=== PATIENT | male | born 1980 | race African-American/Black ===

== ENCOUNTER 2019-09-23 17:06 | Emergency (ER) | payer OTHER, SELFPAY ==
--- NOTE | ~2019-09-23 | XR_ITS ---
EXAMINATION: XR chest 2V 09/23/2019 17:37 INDICATION: Cough for 2 weeks PROCEDURE: 2 view chest COMPARISON: 08/25/2019 FINDINGS: The lungs are clear. The cardiomediastinal silhouette is within normal limits. There are no pleural effusions. There is no pneumothorax suspected. IMPRESSION: 1: NO ACUTE CARDIOPULMONARY DISEASE. Reviewed, dictated and finalized at location A. UCTION ENGINEER
--- NOTE | 2019-09-23 17:12 | ED.URI ---
HPI - URI/Sore Throat General Chief Complaint: Upper Respiratory Infection Stated Complaint: cough/wheezing/mucus/sore throat Time Seen by Provider: 09/23/19 17:20 Source: patient and RN notes reviewed Mode of arrival: ambulatory Limitations: no limitations History of Present Illness HPI Narrative: 39-year-old male presents with concern for cough, wheezing, chest congestion. Reports symptoms started more than 2 weeks ago, when he was seen in this clinic for results symptoms. He was given a Medrol Dosepak, Claritin, Flonase. Reports some improvement with Flonase, however his cough and chest congestion never resolved. He denies fever. Reports his child was diagnosed with influenza A today MD elicited complaint: cough Related Data Home Medications Medication Instructions Recorded Confirmed Vitamin D3 08/25/19 vickey dlvayc-Ep-krnOsyvvuufy-tea tablet 08/25/19 [Apple Cider Vinegar Plus] fqvz-fmr-izq-blkbor-om 3,6,9 5 cap PO 08/25/19 [[place] 3-6-9 Fatty Acids] hydrochlorothiazide 25 mg PO DAILY 08/25/19 pnpgdzevhuvs-rpu-whni-FA-vit K tablet PO 08/25/19 [Adults Multivitamin] Allergies Allergy/AdvReac Type Severity Reaction Status Date / Time ibuprofen Allergy Unknown Hives Verified 08/25/19 15:58 Review of Systems Review of Systems: Narrative: CONSTITUTIONAL: Reports malaise. Denies chills, sweats, or fever. EYES: Denies visual changes, redness, or discharge. ENT: Reports improving rhinorrhea, congestion. Reports sore throat. Denies sinus pain, otalgia. CARDIOVASCULAR: Denies chest pain, palpitations, or edema. RESPIRATORY: Reports cough, chest congestion, wheezing. Denies dyspnea. GASTROINTESTINAL: Denies abdominal pain, nausea, vomiting, diarrhea SKIN: Denies rash or itching. MUSCULOSKELETAL: Denies myalgia. NEUROLOGIC: Denies headache. All systems reviewed & are unremarkable except as noted in HPI and below PMFSH Social History Social History Smoking status: Never smoker Gender identity (if verbalized by the patient): Male Comments At time of signature, agree with nursing past medical, surgical, social and family history. There is no relevant family history pertinent to the presenting complaint Exam Narrative: Exam Narrative: GENERAL: Well-appearing, well-nourished, and in no acute distress. HEAD: Normocephalic, atraumatic. EYES: PERRLA, conjunctivae clear, and EOMI. ENT: Nares clear, turbinates erythematous, clear discharge. Mucous membranes moist. TM pearly gibbs with dull light reflex bilaterally; no tragal tenderness. Oropharynx erythematous without lesions. Tonsils not enlarged and without exudate, no drooling, no hoarseness, no trismus. NECK: Supple. No lymphadenopathy CHEST: Clear to auscultation, right lower breath sounds decreased. No wheezing, rhonchi, rales, or stridor. No respiratory distress, speaks in full sentences. HEART: Regular rate and rhythm. No murmur heard. Normal peripheral pulses. SKIN: Warm, dry, no rash. NEURO: Alert and oriented x3. PSYCH: Normal mood and affect Course Course Emergency Course: Patient is aware of diagnosis, understands and agrees to treatment plan. Anticipatory guidance given. Patient agrees to follow-up as directed and is aware of reasons to seek care at the emergency department. Portions of this record may have been created with voice recognition software Vital Signs Vital signs: Vital Signs Temperature 97.1 F L 09/23/19 17:17 Pulse Rate 83 09/23/19 17:17 Respiratory Rate 16 09/23/19 17:17 Blood Pressure 154/92 H 09/23/19 17:17 Pulse Oximetry 99 09/23/19 17:17 Temperature 97.1 F L 09/23/19 17:17 Pulse Rate 83 09/23/19 17:17 Respiratory Rate 16 09/23/19 17:17 Blood Pressure 154/92 H 09/23/19 17:17 Pulse Oximetry 99 09/23/19 17:17 Reviewed. MDM - URI/Sore Throat MDM Narrative Medical decision making narrative: Differential diagnosis considered: Strep pharyngitis, al
[2019-09-23 17:17] VITALS: BP 154/92; PULSE 83; RESP 16; TEMP 36.2; O2SAT 99
== END 2019-09-23 17:52 | disposition home or self-care (01) ==
PROVIDERS: Emergency Provider Nurse Practitioner; PCP Emergency Medicine
DX: J32.9 Chronic sinusitis, unspecified (principal); J40 Bronchitis, not specified as acute or chronic; I10 Essential (primary) hypertension
CPT/HCPCS: 71046; 99213; G0463

== ENCOUNTER 2020-07-28 06:53 | Outpatient (NON) | payer OTHER, SELFPAY ==
[2020-07-28 23:31] LABS: SARS-CoV-2 RNA PCR Positive
== END 2020-07-28 06:54 ==
PROVIDERS: PCP Emergency Medicine; Visit Provider Emergency Medicine
DX: U07.1 COVID-19 (principal)
CPT/HCPCS: 87635; C9803; U0003

== ENCOUNTER 2020-08-07 02:18 | Outpatient (CLI) | payer OTHER, SELFPAY ==
[2020-08-07 22:41] LABS: SARS-CoV-2 RNA PCR Positive
== END 2020-08-07 02:19 | disposition home or self-care (01) ==
LOC: ANHCOVIDDT 02:19
PROVIDERS: PCP Emergency Medicine; Visit Provider Internal Medicine Gastroenterology
DX: U07.1 COVID-19 (principal)
CPT/HCPCS: 87635; C9803; U0003

== ENCOUNTER 2020-09-14 00:36 | Day surgery (SDC) | payer OTHER, SELFPAY ==
[2020-08-06 14:21] VITALS: BMI 39.9
--- NOTE | 2020-09-03 15:35 | SUR.PREOP ---
Patient states tested positive for COVID on August 07. Will not be swabbed for this procedure.
[2020-09-14 07:24] VITALS: BP 145/97; PULSE 84; RESP 17; TEMP 36.1; O2SAT 97; BMI 39.2
[2020-09-14] MEDS: LACTATED RINGERS 1,000 ML 150 ML IV CONT (07:34)
--- NOTE | 2020-09-14 08:18 | PM.HPGS ---
History of Present Illness History of Present Illness Consent: Risks, benefits, and alternatives have been discussed and questions answered. Patient agrees to proceed with procedure. Chief complaint: rectal hemorrhage Narrative: Edilson Garnica II is a 40 year old male with rectal bleeding that already stopped but never had a colonoscopy Review of Systems Constitutional: Constitutional: Denies headache(s) and Denies weakness Eyes: Eyes: Denies blurry vision ENT: Reports Normal hearing present, Denies headache(s) and Denies neck pain Cardiovascular: Cardiovascular: Denies chest pain and Denies dyspnea Respiratory: Respiratory: Denies dyspnea Gastrointestinal: Gastrointestinal: Reports no additional gastrointestinal complaints Genitourinary: Genitourinary: Denies dysuria Musculoskeletal: Musculoskeletal: Denies neck pain Integumentary/Breasts: Skin/Breast: Denies dry skin Neurologic: Reports Normal hearing present, Denies headache(s) and Denies weakness Psychiatric: Psychiatric: Denies anxiety Endocrine: Endocrine: Denies change in body appearance Hematologic/Lymphatic: Hematologic/Lymphatic: Denies easy bleeding Allergic/Immunologic: Allergic/Immunologic: Denies urticaria PMFSH Past Medical History Medical History HTN (hypertension) Surgical History Surgical History Hx of knee surgery meniscus repair Social History Social History Smoking status: Never smoker Substance use type: does not use Living arrangements: with family Gender identity (if verbalized by the patient): Male Spiritual care concerns: No Meds Home Medications and Allergies Home Medications Medication Instructions Recorded Confirmed Type vickey vuncip-Fp-zruGjhsuddyo-tea 1 tablet PO DAILY 08/25/19 08/06/20 History [Apple Cider Vinegar Plus] egle-prr-kpn-blkbor-om 3,6,9 5 1 cap PO DAILY 08/25/19 08/06/20 History [[place] 3-6-9 Fatty Acids] dolfzrzcvkxq-wws-lnjt-FA-vit K 1 tablet PO DAILY 08/25/19 08/06/20 History [Adults Multivitamin] cetirizine-pseudoephedrine 1 tablet PO Q12H PRN #12 tablet 01/31/20 01/22/21 Rx [Zyrtec-D] hydrochlorothiazide 25 mg tablet See Rx Instructions .ROUTE 06/27/20 09/14/20 Rx .COMPLEX #90 tablet amlodipine 5 mg tablet 5 mg PO DAILY #90 tablet 06/29/20 09/14/20 Rx Allergies Allergy/AdvReac Type Severity Reaction Status Date / Time ibuprofen Allergy Unknown Hives Verified 09/14/20 07:21 Vital Signs Vital Signs - 24 hr 09/14/20 07:24 Temperature 97 F L Pulse Rate 84 Respiratory Rate 17 Blood Pressure 145/97 H Pulse Oximetry 97 Exam Const: General: comfortable and no acute distress HENMT: General nose exam: Normal nares present Eyes: General: appearance normal, both eyes and all related structures Neck: Neck: no JVD Resp: Auscultation: clear to auscultation bilaterally Cardio: Rate: regular rate Rhythm: regular rhythm GI: Inspection: non-distended GI Palp: Yes Soft to palpation Skin: General skin exam: normal color Neuro: General: gait normal Speech: normal speech Extrem: General: normal to inspection Psych: Mental Status: mental status grossly normal Assessment and Plan Assessment and plan (1) Bloody stool: Code(s): K92.1 - Melena Status: Acute Assessment and Plan: will proceed with colonoscopy
--- NOTE | 2020-09-14 08:20 | WPDANESEPP ---
Anes - Eval Pre Procedure Procedure: Operation Date: 09/14/20 09:00 Proposed Procedures p Colonoscopy - [place] [facility] MD Date/Time: 09/14/20 08:20 Pre Op Diagnosis: rectal hemorrhage Patient Data Age: 40 Gender: M Height: 1.8 m Weight: 127.8 kg Last Vital Signs Temp 36.1 C L 09/14/20 07:24 Pulse 84 09/14/20 07:24 Resp 17 09/14/20 07:24 BP 145/97 H 09/14/20 07:24 Pulse Ox 97 09/14/20 07:24 Allergies Allergy/AdvReac Type Severity Reaction Status Date / Time ibuprofen Allergy Unknown Hives Verified 09/14/20 07:21 Home Medications Medication Instructions Recorded Confirmed Type vickey jufpuq-Vl-gnhLmidphpja-tea 1 tablet PO DAILY 08/25/19 08/06/20 History [Apple Cider Vinegar Plus] zkgf-coq-sol-blkbor-om 3,6,9 5 1 cap PO DAILY 08/25/19 08/06/20 History [[place] 3-6-9 Fatty Acids] wtbvbrmjydaj-ufi-xmtz-FA-vit K 1 tablet PO DAILY 08/25/19 08/06/20 History [Adults Multivitamin] cetirizine-pseudoephedrine 1 tablet PO Q12H PRN #12 tablet 09/23/19 09/14/20 Rx [Zyrtec-D] hydrochlorothiazide 25 mg tablet See Rx Instructions .ROUTE 06/27/20 09/14/20 Rx .COMPLEX #90 tablet amlodipine 5 mg tablet 5 mg PO DAILY #90 tablet 06/29/20 09/14/20 Rx Patient hx anesthesia problems: none Family hx anesthesia problems: none PMFSH Past Medical History Medical History (Updated 09/14/20 @ 08:20 by Chay Campbell CRNA) HTN (hypertension) Obesity Surgical History Surgical History Hx of knee surgery meniscus repair Social History Social History Smoking status: Never smoker Substance use type: does not use Living arrangements: with family Gender identity (if verbalized by the patient): Male Spiritual care concerns: No Exam Day of Procedure 09/14/20 08:20 Patient weight: obese Heart: regular rate and rhythm Lungs: normal air movement Airway: Mallampati scale class III Neurological: alert and oriented
[2020-09-14 08:41] VITALS: BP 131/82; PULSE 81; RESP 20; O2SAT 98
[2020-09-14 08:51] VITALS: BP 118/80; PULSE 80; RESP 18; O2SAT 96
[2020-09-14 09:01] VITALS: BP 112/73; PULSE 88; RESP 20; O2SAT 96
[2020-09-14 09:11] VITALS: BP 127/90; PULSE 76; RESP 18; O2SAT 99
== END 2020-09-14 09:17 | disposition home or self-care (01) ==
PROVIDERS: PCP Emergency Medicine; Visit Provider Internal Medicine Gastroenterology
PROC: 0DJD8ZZ Inspection of Lower Intestinal Tract, Via Natural or Artificial Opening Endoscopic (ICD-10-PCS; CPT 45378; principal; 2020-09-14 09:00)
DX: K92.1 Melena (principal); K64.8 Other hemorrhoids; I10 Essential (primary) hypertension; E66.9 Obesity, unspecified; Z68.39 Body mass index [BMI] 39.0-39.9, adult
CPT/HCPCS: 45378; C9803; J2704; J7120; U0003

== ENCOUNTER 2020-10-18 10:13 | Outpatient (CLI) | payer OTHER, SELFPAY ==
--- NOTE | ~2020-10-18 | CT_ITS ---
EXAMINATION: CT sinus wo con DATE: 10/18/2020 10:44 INDICATION: Cluster headache syndrome TECHNIQUE: Computed tomography (CT) of the paranasal sinuses was performed without contrast. Iterativ e reconstruction technique was employed. Exam dose: 287.87 mGy-cm total exam DLP. COMPARISON: None FINDINGS: There is prominent rightward deviation of the nasal septum. Wen bullosa and intralamellar cell of left middle nasal turbinate. Minimal intralamellar cell of right middle nasal turbinate. The nasal turbinates are prominently thic kened bilaterally. The frontal sinuses and left ethmoid air cells are normally developed and aerated. There is partial opacification of a couple of anterior right ethmoid air cells. Up to 2.5 cm right maxillary polypoid soft tissue density. Up to 2.3 cm polypoid left maxillary soft tissue density. The maxillary sinuses are otherwise unremarkable. Normal development and aeration of the sphenoid sinuses. The mastoid air cells are normally developed and aerated. Middle and inner ear apparatus appear normal bilaterally. IMPRESSION: Prominent rightward deviation of nasal septum Wen bullosa and intralamellar cell of left middle nasal turbinate Minimal interlamellar cell of right middle nasal turbinate Large polypoid soft tissue densities of each maxillary sinus Partial soft tissue opacification of anterior right ethmoid air cells Reviewed, dictated and finalized at [facility]. Reviewed, dictated and finalized at location A. [employer]TER LAB ASSISTANT
== END 2020-10-18 10:14 | disposition home or self-care (01) ==
PROVIDERS: PCP Emergency Medicine; Visit Provider Emergency Medicine
DX: G44.009 Cluster headache syndrome, unspecified, not intractable (principal); J34.2 Deviated nasal septum
CPT/HCPCS: 70486

== ENCOUNTER 2020-11-23 19:20 | Emergency (ER) | payer OTHER, SELFPAY ==
[2020-11-23 19:35] VITALS: BP 140/95; PULSE 75; RESP 20; TEMP 36.4; O2SAT 98
--- NOTE | 2020-11-23 19:38 | ED.EAR ---
HPI - Ear Problem General Chief complaint: Ear Stated complaint: ear infection Time Seen by Provider: 11/23/20 19:38 Source: patient and RN notes reviewed Mode of arrival: ambulatory Limitations: no limitations History of Present Illness HPI Narrative: 40-year-old male who presents to [facility] with complaints of left ear pain which started today. Patient states that he also has had some sinus drainage with sinus pressure and he has been using Nasacort with no improvement in his symptoms for the past few days also with some soreness to his throat. Patient denies any sharp soreness to his throat or any difficulty with swallowing or any shortness of breath, voices no known fevers, chills, or sweats. Patient did have COVID in July of 2020. MD Complaint: ear pain Location: left ear Duration: constant Severity: moderate Relieving factors: nothing Exacerbating factors: nothing Discharge from ear: Reports no Associated symptoms ear: rhinorrhea and other (nasal congestion) Treatment prior to arrival: other (Nasacort) Related Data Home Medications Medication Instructions Recorded Confirmed vickey enxsem-Ut-ibnMswnjpmvr-tea 1 tablet PO DAILY 08/25/19 08/06/20 [Apple Cider Vinegar Plus] ffjq-ybr-ikl-blkbor-om 3,6,9 5 1 cap PO DAILY 08/25/19 08/06/20 [[place] 3-6-9 Fatty Acids] njfkqjwqptqx-ewz-cgpu-FA-vit K 1 tablet PO DAILY 08/25/19 08/06/20 [Adults Multivitamin] cholecalciferol (vitamin D3) 50 50 mcg PO DAILY 10/05/20 mcg (2,000 unit) capsule Allergies Allergy/AdvReac Type Severity Reaction Status Date / Time ibuprofen Allergy Unknown Hives Verified 10/25/20 14:49 Review of Systems Review of Systems: Narrative: CONSTITUTIONAL: Denies fever, chills, or sweats. EYES: Denies visual changes, redness, or discharge. ENT: Positive rhinorrhea, congestion, mild sore throat,positive for left otalgia CARDIOVASCULAR: Denies chest pain, palpitations, or edema. RESPIRATORY: Denies cough or dyspnea. GASTROINTESTINAL: Denies abdominal pain, nausea, vomiting, or diarrhea. GENITOURINARY: Denies dysuria or hematuria. SKIN: Denies rash or itching. MUSCULOSKELETAL: Denies back pain, joint pain, or myalgia. NEUROLOGIC: Denies headache, numbness, or weakness. PSYCHIATRIC: Denies anxiety or depression. All systems reviewed & are unremarkable except as noted in HPI and below PMFSH Past Medical History Medical History (Updated 11/24/20 @ 15:59 by Day Rosenthal NP) Headache HTN (hypertension) Obesity Surgical History Surgical History Hx of knee surgery meniscus repair Family History Family History (Updated 11/23/20 @ 19:55 by Day Rosenthal NP) Father Hypertension Mother Hypertension Sibling Hypertension Grandparent Lung cancer Social History Social History (Updated 11/23/20 @ 19:56 by Day Rosenthal NP) Smoking status: Never smoker Alcohol intake: current Alcohol use details: rare alcohol use Substance use: never Substance use type: does not use Living arrangements: with family Gender identity (if verbalized by the patient): Male Spiritual care concerns: No Comments At time of signature, agree with nursing past medical, surgical, social and family history. There is no relevant family history pertinent to the presenting complaint Exam Narrative: Exam Narrative: GENERAL: Well-appearing, well-nourished, and in no acute distress. HEAD: Normocephalic, atraumatic. EYES: PERRLA and EOMI. ENT: Nares red with turbinates swollen, clear rhinorrhea no epistaxis. Mucous membranes moist.TM normal right ear with good light reflex, TM red and with dull light reflex left ear, Throat red with no lesions or exudates, tonsils not enlarged, post nasal drainage noted. NECK: Supple.no lymphadenopathy CHEST: Clear to auscultation. No respiratory distress.SAO2 98% on room air HEART: Regular rate and rhythm. No murmur heard. Normal peripheral
== END 2020-11-23 19:55 | disposition home or self-care (01) ==
PROVIDERS: Emergency Provider Registered Nurse; PCP Emergency Medicine
DX: H66.92 Otitis media, unspecified, left ear (principal); J00 Acute nasopharyngitis [common cold]; J01.90 Acute sinusitis, unspecified; I10 Essential (primary) hypertension; E66.9 Obesity, unspecified; Z68.41 Body mass index [BMI] 40.0-44.9, adult
CPT/HCPCS: 99213; G0463

== ENCOUNTER 2020-11-27 10:28 | Outpatient (CLI) | payer OTHER, SELFPAY ==
--- NOTE | 2020-11-28 13:06 | WPDNEUROLOGY ---
Neurology EEG Report General Information Date of Study: 11/27/20 TEST eeg DIAGNOSIS headaches CONDITION OF RECORDING awake drowsy and sleep EEG NUMBER [id number] CLINICAL HISTORY patient reported he had COVID 3 months ago and has had a persistent headache ever since then EEG DESCRIPTION basic resting occipital frequency consists of large amount of well-organized low to medium voltage 9 to 11 hertz per second alpha admixed with low-voltage 15 to 18 hertz per second beta. During drowsiness low-voltage beta activity seen diffusely admixed with waxing and waning posterior alpha rhythm. Regular EKG artifact is seen throughout most of the tracing. photic stimulation produced normal drive. non paroxysmal. Nonfocal. Nonlateralizing. IMPRESSION Normal record
== END 2020-11-27 10:29 | disposition home or self-care (01) ==
PROVIDERS: PCP Emergency Medicine; Visit Provider Psychiatry & Neurology Neurology
DX: R51.9 Headache, unspecified (principal)
CPT/HCPCS: 95816

== ENCOUNTER → 2020-11-29 09:42 | Outpatient (CLI) | payer OTHER, SELFPAY ==
--- NOTE | ~2020-11-29 | MR_ITS ---
EXAMINATION: MR brain/brain stem wo/w con DATE: 11/29/2020 10:34 INDICATION: Headache. TECHNIQUE: Magnetic resonance imaging (MRI) of the brain and brainstem was performed without and with 20 mL MultiHance intravenous contrast. Sequences included sagittal and axial T1-weighted FSE, axial diffusion-weighted FS EPI, axial T2*-weighted GRE, axial T2-weighted FLAIR Propeller, and axial T2-we ighted Propeller. Postcontrast sequences included axial and coronal T1-weighted FSE. Apparent diffusi on coefficient (ADC) maps were created. COMPARISON: None. FINDINGS: There is no intracranial hemorrhage, acute infarction, or abnormal intracranial mass lesion . The ventricles are normal in size. There is mucosal thickening in the paranasal sinuses. There are mucous retention cysts in the maxillary sinuses. The orbits are normal. The mastoid air cells are nor mal. IMPRESSION: 1. Normal brain. Reviewed, dictated and finalized at location A. IMPRESSION: 1. Normal brain.
[2020-11-29 10:15] LABS: Estimated Glomerular Filt Rate > 60
== END ==
PROVIDERS: Visit Provider Psychiatry & Neurology Neurology
DX: R51.9 Headache, unspecified (principal)
CPT/HCPCS: 70553; A9577

== ENCOUNTER 2021-07-04 18:13 | Emergency (ER) | payer OTHER, SELFPAY ==
--- NOTE | ~2021-07-04 | XR_ITS ---
EXAMINATION: XR tibia fibula LT 2V EXAM DATE: 07/04/2021 19:06 INDICATION: left calf pain s/p jumping yesterday. TECHNIQUE: Left tibia/fibula frontal and lateral projections obtained and reviewed. There is no prio r study for comparison. FINDINGS: Left tibial and fibular shafts unremarkable. There are no acute fractures or dislocations identified. There is no subcutaneous gas. The soft tissue is unremarkable. There are no radiopaqu e foreign bodies. IMPRESSION: 1. Unremarkable XR tibia fibula LT 2V exam. Reviewed, dictated and finalized at location A. [employer] INTERNSH[employer]
[2021-07-04 18:26] VITALS: BP 120/82; PULSE 84; RESP 16; TEMP 36.8; O2SAT 98
--- NOTE | 2021-07-04 19:12 | ED.LOWEXIN ---
HPI - Extremity Injury (Lower) General Chief Complaint: Extremity Injury, Lower Stated Complaint: left leg pain History of Present Illness HPI Narrative: This is a 41-year-old male presents to the urgent care because he injured his left calf states he was bowling went to go stand and made a strike and jumped and started having pain and has not been able to ambulate since Related Data Home Medications Medication Instructions Recorded Confirmed vickey wxvwdb-Hq-biiIwfqaxyfq-tea 1 tablet PO DAILY 08/25/19 07/04/21 [Apple Cider Vinegar Plus] mjkh-mlr-hnr-blkbor-om 3,6,9 5 1 cap PO DAILY 08/25/19 07/04/21 [[place] 3-6-9 Fatty Acids] hduznskumtcd-mfl-yyox-FA-vit K 1 tablet PO DAILY 08/25/19 07/04/21 [Adults Multivitamin] cholecalciferol (vitamin D3) 50 50 mcg PO DAILY 10/05/20 07/04/21 mcg (2,000 unit) capsule Allergies Allergy/AdvReac Type Severity Reaction Status Date / Time ibuprofen Allergy Unknown Hives Verified 07/04/21 18:43 Review of Systems Review of Systems: Left calf pain PMFSH Past Medical History Medical History Headache HTN (hypertension) Obesity Surgical History Surgical History Hx of knee surgery meniscus repair Family History Family History Father Hypertension Mother Hypertension Sibling Hypertension Grandparent Lung cancer Social History Social History Smoking status: Never smoker Alcohol intake: current Alcohol use details: rare alcohol use Substance use: never Substance use type: does not use Gender identity (if verbalized by the patient): Male Spiritual care concerns: No Comments At time as signature, I have reviewed and agree with nursing past medical, social, surgical and family history. Please see nursing chart for further information. There is no relevant family history pertinent to the presenting complaint. Exam Narrative: GENERAL:Well-appearing, well-nourished, and in no acute distress. HEAD:Normocephalic, atraumatic. EYES: PERRLA and EOMI. ENT: Nares clear, no rhinorrhea or epistaxis. Mucous membranes moist. NECK: Supple. CHEST: Clear to auscultation. No respiratory distress. HEART: Regular rate and rhythm.. ABDOMEN: Soft, nontender, nondistended, normal active bowel sounds. EXTREMITIES: Normal range of motion. No edema. Left calf pain decreased range of motion unable to apply for pressure SKIN: Warm, dry, no rash. NEURO: No focal deficits. Alert and oriented x3. Course Vital Signs Vital signs: Vital Signs Temperature 98.3 F 07/04/21 18:26 Pulse Rate 84 07/04/21 18:26 Respiratory Rate 16 07/04/21 18:26 Blood Pressure 120/82 07/04/21 18:26 Pulse Oximetry 98 07/04/21 18:26 Temperature 98.3 F 07/04/21 18:26 Pulse Rate 84 07/04/21 18:26 Respiratory Rate 16 07/04/21 18:26 Blood Pressure 120/82 07/04/21 18:26 Pulse Oximetry 98 07/04/21 18:26 MDM - Extremity Injury (Lower) Differential Diagnosis Differential diagnosis: Likely ankle sprain and strain, acute internal derangement of knee, fracture of femur and ankle fracture Discharge Plan Discharge Clinical Impression: Achilles tendon disorder Qualifiers: Laterality: right Qualified Code(s): M67.971 - Unspecified disorder of synovium and tendon, right ankle and foot Patient Disposition: Home, Self-Care Condition: Stable Instructions: Antibiotic Form, Achilles Tendon Rupture (ED), Achilles Tendinitis (ED), Tendon Rupture (ED), Achilles Tendon Lengthening (DC) Additional Instructions: Avoid weight bearing until the pain subsides. Ice to the area 20-30 minutes 4-6 times a day Elevate above heart Elastic wrap or orthopedic splint as directed for comfort for the next 5-7 days Crutches as directed if needed Tylenol for lesser pain Ibuprofen regul
== END 2021-07-04 19:35 | disposition home or self-care (01) ==
PROVIDERS: Emergency Provider Nurse Practitioner Family; PCP Emergency Medicine
DX: M67.972 Unspecified disorder of synovium and tendon, left ankle and foot (principal); I10 Essential (primary) hypertension; E66.9 Obesity, unspecified; Z68.39 Body mass index [BMI] 39.0-39.9, adult
CPT/HCPCS: 73590; 99213; G0463

== ENCOUNTER 2021-07-12 07:42 | Outpatient (CLI) | payer OTHER, SELFPAY ==
--- NOTE | ~2021-07-12 | MR_ITS ---
EXAMINATION: MR lower leg LT wo con DATE: 07/12/2021 08:54 INDICATION: Left lower leg pain TECHNIQUE: Magnetic resonance imaging (MRI) of the left lower leg was performed without intravenous c ontrast. Sequences included axial, sagittal and coronal T1-weighted FSE and fluid sensitive FSE STIR and axial T1-weighted FS FSE. COMPARISON: Radiographs dated 07/04/2021 FINDINGS: Bone alignment is normal with normal marrow signal throughout. No reactive edema, fracture or patholo gic marrow replacing process. There is a partial tear along the distal myotendinous junction of the m edial head of the left gastrocnemius muscle. Fluid signal intensity extends approximately 7.5 cm prox imally from the distal margin of the myotendinous junction and approximately 5 cm along the transvers e width of the myotendinous junction (approximately two thirds of the total width). No significant pr oximal retraction. Remainder of the musculature in the lower leg is unremarkable. No knee or ankle moreno int effusion. IMPRESSION: 1. Moderate grade strain/partial tear distal myotendinous junction of the medial head of the gastrocn emius muscle. Reviewed, dictated and finalized at location A. [employer] IMPRESSION: 1. Moderate grade strain/partial tear distal myotendinous junction of the media l head of the gastrocnemius muscle.
== END 2021-07-12 07:43 | disposition home or self-care (01) ==
PROVIDERS: PCP Emergency Medicine; Visit Provider Emergency Medicine
DX: M79.606 Pain in leg, unspecified (principal)
CPT/HCPCS: 73718

== ENCOUNTER 2022-01-18 10:55 | Emergency (ER) | payer OTHER, SELFPAY ==
--- NOTE | 2022-01-18 11:02 | ED.SKABFB ---
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 Denies ear pain, headache, dizziness, tinnitus or drainage. Related Data Home Medications Medication Instructions Recorded Confirmed cider 1 tablet PO DAILY 08/25/19 12/30/21 ryuhjru-Jl-npxyizsdmfbyucdn-tea 500 mg-100 mcg-300 mg-60 mg tab (Apple Cider Vinegar Plus) fish,flax,primrose,borag 1 cap PO DAILY 08/25/19 12/30/21 oils-om3,6,9 no5 400 mg-400 mg-200 mg capsule ([place] 3-6-9 Fatty Acids) multivit with minerals-iron 18 1 tablet PO DAILY 08/25/19 12/30/21 mg-folic ac 400 mcg-vit K 25 mcg tablet (Adults Multivitamin) cholecalciferol (vitamin D3) 50 50 mcg PO DAILY 10/05/20 12/30/21 mcg (2,000 unit) capsule Allergies Allergy/AdvReac Type Severity Reaction Status Date / Time ibuprofen Allergy Unknown Hives Verified 01/18/22 11:06 Review of Systems Review of Systems: CONSTITUTIONAL: Denies malaise, chills, or fever. EYES: Denies visual changes, redness, or discharge. ENT: Denies rhinorrhea, congestion, sinus pain, and sore throat. Reports ear FB CARDIOVASCULAR: Denies chest pain, palpitations, or edema. RESPIRATORY: Denies cough or dyspnea. GASTROINTESTINAL: Denies abdominal pain, nausea, vomiting, diarrhea SKIN: Denies rash or itching. MUSCULOSKELETAL: Denies myalgia. NEUROLOGIC: Denies headache. All systems reviewed & are unremarkable except as noted in HPI and below PMFSH Past Medical History Medical History Claustrophobia Headache HTN (hypertension) Obesity SOB (shortness of breath) on exertion Weight gain Surgical History Surgical History Hx of knee surgery meniscus repair Family History Family History Father Hypertension Mother Hypertension Sibling Hypertension Grandparent Lung cancer Other Asthma Depression HLD (hyperlipidemia) Social History Social History Smoking status: Never smoker Alcohol intake: current Alcohol use details: rare alcohol use Substance use: never Substance use type: does not use Additional occupation/education comments: [employer] Gender identity (if verbalized by the patient): Male Spiritual care concerns: No Comments At time of signature, agree with nursing past medical, surgical, social and family history. There is no relevant family history pertinent to the presenting complaint Exam Narrative: GENERAL: Well-appearing. HEAD: Normocephalic EYES: conjunctivae clear ENT: Nares clear. Mucous membranes moist. Right TM pearly gibbs with normal light reflex; Left TM unable to visualize due to FB; no tragal tenderness. NECK: Supple. No lymphadenopathy CHEST: Clear to auscultation, breath sounds equal. HEART: Regular rate and rhythm. No murmur heard. SKIN: Warm, dry, no rash. NEURO: Alert and oriented x3. PSYCH: Normal mood and affect Course Course Emergency Course: Patient is aware of diagnosis, understands and agrees to treatment plan. Anticipatory guidance given. Patient agrees to follow-up as directed and is aware of reasons to seek care at the emergency department. Portions of this record may have been created with voice recognition software Level of Care: Express Care Visit Vital Signs Vital signs: Reviewed Procedures FB Removal Ear Foreign Body #1: Foreign Body Removal Date: 01/18/22 Location: ear canal (L) Foreign Body Suspected: other (Q-tip cotton) TM intact pre-procedure: unable to visualize Foreign Body Removed:
[2022-01-18 11:03] VITALS: BP 144/96; PULSE 74; RESP 14; TEMP 36.4; O2SAT 100
== END 2022-01-18 11:17 | disposition home or self-care (01) ==
PROVIDERS: Emergency Provider Nurse Practitioner Family; PCP Emergency Medicine
DX: T16.2XXA Foreign body in left ear, initial encounter (principal); X58.XXXA Exposure to other specified factors, initial encounter; I10 Essential (primary) hypertension; E66.9 Obesity, unspecified; Z68.41 Body mass index [BMI] 40.0-44.9, adult; F40.240 Claustrophobia; Z86.16 Personal history of COVID-19
CPT/HCPCS: 69200; 99212; G0463

== ENCOUNTER 2022-03-04 22:44 | Emergency (ER) | payer OTHER, SELFPAY ==
[2022-03-04 22:49] VITALS: BP 142/98; PULSE 88; RESP 16; TEMP 35.8; O2SAT 98
[2022-03-05 02:44] VITALS: BP 145/108; PULSE 76; RESP 18; TEMP 36.4; O2SAT 100
[2022-03-05] MEDS: SODIUM CHLORIDE 0.9% IV 1,000 ML 999 ML IV CONT (05:33)
[2022-03-05] MEDS: METOCLOPRAMIDE HCL INJ 10 MG/2 ML VIAL IV PUSH (05:34)
[2022-03-05] MEDS: diphenhydrAMINE HCl INJ 50 MG/ML VIAL 25 MG IV PUSH (05:35)
--- NOTE | 2022-03-05 07:07 | ED.HA ---
HPI - Headache General Chief Complaint: Headache Stated Complaint: migraine, facial tingling Time Seen by Provider: 03/05/22 04:24 History of Present Illness HPI Narrative: Patient is a 41-year-old male who presents ER with migraine headache. Has history of migraines since having COVID 2 years ago. He did not take his sumatriptan because he had to drive from [place] and it makes him very tired. Reports he had some burning over his forehead which is atypical. No fevers chills or sweats. No neck pain. No numbness or tingling arms or legs. No trauma. Related Data Home Medications Medication Instructions Recorded Confirmed cider 1 tablet PO DAILY 08/25/19 01/18/22 ubxixhq-Mu-ymwafipuprdiacln-tea 500 mg-100 mcg-300 mg-60 mg tab (Apple Cider Vinegar Plus) fish,flax,primrose,borag 1 cap PO DAILY 08/25/19 01/18/22 oils-om3,6,9 no5 400 mg-400 mg-200 mg capsule ([place] 3-6-9 Fatty Acids) multivit with minerals-iron 18 1 tablet PO DAILY 08/25/19 01/18/22 mg-folic ac 400 mcg-vit K 25 mcg tablet (Adults Multivitamin) cholecalciferol (vitamin D3) 50 50 mcg PO DAILY 10/05/20 01/18/22 mcg (2,000 unit) capsule Allergies Allergy/AdvReac Type Severity Reaction Status Date / Time ibuprofen Allergy Unknown Hives Verified 03/04/22 22:54 Review of Systems Review of Systems: All systems reviewed & are unremarkable except as noted in HPI and below Constitutional: Constitutional: Denies chills, Denies fatigue and Denies fever(s) Eyes: Eyes: Denies change in vision and Reports photophobia ENT: Denies nasal congestion and Denies sore throat Cardiovascular: Cardiovascular: Denies chest pain, Denies radiating jaw, neck or arm pain and Denies slow heart rate Respiratory: Respiratory: Denies cough and Denies dyspnea Gastrointestinal: Gastrointestinal: Denies abdominal pain, Denies nausea and Denies vomiting Neurologic: Reports headache(s), Denies focal weakness, Denies numbness and Denies weakness PMFSH Past Medical History Medical History Claustrophobia Headache HTN (hypertension) Obesity SOB (shortness of breath) on exertion Weight gain Surgical History Surgical History Hx of knee surgery meniscus repair Family History Family History Father Hypertension Mother Hypertension Sibling Hypertension Grandparent Lung cancer Other Asthma Depression HLD (hyperlipidemia) Social History Social History Smoking status: Never smoker Alcohol intake: current Alcohol use details: rare alcohol use Substance use: never Substance use type: does not use Additional occupation/education comments: [employer] Gender identity (if verbalized by the patient): Male Spiritual care concerns: No Exam Narrative: GENERAL: Well-appearing, well-nourished, and in no acute distress. HEAD: Normocephalic, atraumatic. EYES: PERRL and EOMI. CHEST: Clear to auscultation. No respiratory distress. HEART: Regular rate and rhythm. Normal peripheral pulses. EXTREMITIES: Normal range of motion. No edema. SKIN: Warm, dry, no rash. NEURO: Alert and oriented x3. PSYCH: Normal mood and affect. Course Course Emergency Course: Headache abated with Tylenol/Reglan/Benadryl. D/c. Vital Signs Vital signs: Vital Signs Temperature 96.5 F L 03/04/22 22:49 Pulse Rate 88 03/04/22 22:49 Respiratory Rate 16 03/04/22 22:49 Blood Pressure 142/98 H 03/04/22 22:49 Pulse Oximetry 98 03/04/22 22:49 Oxygen Delivery Room Air 03/04/22 22:49 Temperature 97.6 F 03/05/22 02:44 Pulse Rate 76 03/05/22 02:44 Respiratory Rate 18 03/05/22 02:44 Blood Pressure 145/108 H 03/05/22 02:44 Pulse Oximetry 100 03/05/22 02:44 Oxygen Delivery Room Air 03/04/22 22:49 Discharge
[2022-03-05 07:21] VITALS: BP 160/100; PULSE 61; RESP 18; O2SAT 100
== END 2022-03-05 07:24 | disposition home or self-care (01) ==
PROVIDERS: Emergency Provider Emergency Medicine; PCP Emergency Medicine
DX: G43.909 Migraine, unspecified, not intractable, without status migrainosus (principal); I10 Essential (primary) hypertension
CPT/HCPCS: 96365; 96375; 99284; J0131; J1200; J2765; J7030

== ENCOUNTER 2022-04-05 18:28 | Emergency (ER) | payer OTHER, SELFPAY ==
[2022-04-05 18:45] VITALS: BP 139/89; PULSE 75; RESP 20; TEMP 36.4; O2SAT 99
--- NOTE | 2022-04-05 18:57 | ED.URI ---
HPI - URI/Sore Throat General Chief Complaint: Upper Respiratory Infection Stated Complaint: Sore throat Time Seen by Provider: 04/05/22 18:57 History of Present Illness HPI Narrative: Edilson Garnica is a 41 yomale with migraine heafdache, [facility] particularly on the left no fever no shortness of breath. He has COVID had COVID 2 years ago and has a headache every single day because he has long COVID his fairly responsive to Nurtec. He is here to be checked for both COVID and for strep Related Data Home Medications Medication Instructions Recorded Confirmed cider 1 tablet PO DAILY 08/25/19 04/05/22 prgjdsc-Br-mlljofsunqmelyrs-tea 500 mg-100 mcg-300 mg-60 mg tab (Apple Cider Vinegar Plus) fish,flax,primrose,borag 1 cap PO DAILY 08/25/19 04/05/22 oils-om3,6,9 no5 400 mg-400 mg-200 mg capsule ([place] 3-6-9 Fatty Acids) multivit with minerals-iron 18 1 tablet PO DAILY 08/25/19 04/05/22 mg-folic ac 400 mcg-vit K 25 mcg tablet (Adults Multivitamin) cholecalciferol (vitamin D3) 50 50 mcg PO DAILY 10/05/20 04/05/22 mcg (2,000 unit) capsule amitriptyline 25 mg tablet 25 mg PO DAILY 04/05/22 04/05/22 rimegepant 75 mg disintegrating 75 mg PO PRN PRN Migraine Headache 04/05/22 04/05/22 tablet (Nurtec ODT) Allergies Allergy/AdvReac Type Severity Reaction Status Date / Time ibuprofen Allergy Unknown Hives Verified 04/05/22 18:41 Review of Systems Review of Systems: CONSTITUTIONAL: Denies fever, chills, sweats. EYES: Denies visual changes, redness, discharge. ENT: Denies rhinorrhea, congestion, has sore throat, otalgia. CARDIOVASCULAR: Denies chest pain, palpitations, edema. RESPIRATORY: Denies dyspnea, wheezing, cough GASTROINTESTINAL: Denies abdominal pain, nausea, vomiting, diarrhea. GENITOURINARY: Denies dysuria, hematuria, abnormal discharge SKIN: Denies rash or itching. NEUROLOGIC: Denies numbness, or focal weakness. PSYCHIATRIC: Denies anxiety or depression. [facility] Past Medical History Medical History Claustrophobia Headache HTN (hypertension) Long COVID Obesity SOB (shortness of breath) on exertion Weight gain Surgical History Surgical History Hx of knee surgery meniscus repair Family History Family History Father Hypertension Mother Hypertension Sibling Hypertension Grandparent Lung cancer Other Asthma Depression HLD (hyperlipidemia) Social History Social History Smoking status: Never smoker Alcohol intake: current Alcohol use details: rare alcohol use Substance use: never Substance use type: does not use Additional occupation/education comments: [employer] Gender identity (if verbalized by the patient): Male Spiritual care concerns: No Exam Narrative: GENERAL: This is a well-nourished, well-developed patient, in mild distress. HEAD: normocephalic, atraumatic. EYES: Sclera clear/white. Vision is grossly intact. EARS: External ears normal, auditory canals erythema with edema particularly on the right and without drainage, TMs cannot be visualized Hearing grossly intact. NOSE: External nose normal without nasal discharge, nares without redness, no rhinorrhea. THROAT: Mucous membranes moist, posterior pharynx swelling on the left side of pharynx 2+ NECK: Neck supple, non-tender CARDIOVASCULAR: Regular rate and rhythm without murmurs, gallops, or rubs. RESPIRATORY: Clear to auscultation. Breath sounds equal bilaterally. No wheezes, rales, or rhonchi. GASTROINTESTINAL: Not done yet SKIN: warm, intact with no suspicious lesions or rash, good texture and turgor. NEURO: awake, alert, and oriented to person, place and time. There were no obvious focal neurologic abnormalities. Steady gait EXTREMI
--- NOTE | 2022-04-05 19:57 | PC.NURSE ---
called and request rx to be sent to another pharmacy d/t initial pharmacy being closed. requested [facility] and was changed. 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
== END 2022-04-05 19:47 | disposition home or self-care (01) ==
PROVIDERS: Emergency Provider Nurse Practitioner; PCP Emergency Medicine
DX: J32.9 Chronic sinusitis, unspecified (principal); H66.93 Otitis media, unspecified, bilateral; Z20.822 Contact with and (suspected) exposure to COVID-19; I10 Essential (primary) hypertension; E66.9 Obesity, unspecified; Z68.41 Body mass index [BMI] 40.0-44.9, adult; Z86.16 Personal history of COVID-19; F40.240 Claustrophobia
CPT/HCPCS: 87081; 87426; 87880; 99213; C9803; G0463

== ENCOUNTER 2022-04-26 13:03 | Emergency (ER) | payer OTHER, SELFPAY ==
[2022-04-26 13:18] VITALS: BP 142/81; PULSE 70; RESP 16; TEMP 36.3; O2SAT 100
--- NOTE | 2022-04-26 13:45 | ED.EAR ---
HPI - Ear Problem General Chief complaint: Ear Stated complaint: Sinus, Ear Irritation both Ears Time Seen by Provider: 04/26/22 13:45 History of Present Illness HPI Narrative: Mary is a 42 yo male with a history of COVID and sinusitis [facility] of further ear pain and green mucus when he blows his nose. He states he has pressure in his head Related Data Home Medications Medication Instructions Recorded Confirmed cider 1 tablet PO DAILY 08/25/19 04/05/22 vlxzamq-Ba-qjkjeuzuqwyvsqih-tea 500 mg-100 mcg-300 mg-60 mg tab (Apple Cider Vinegar Plus) fish,flax,primrose,borag 1 cap PO DAILY 08/25/19 04/05/22 oils-om3,6,9 no5 400 mg-400 mg-200 mg capsule ([place] 3-6-9 Fatty Acids) multivit with minerals-iron 18 1 tablet PO DAILY 08/25/19 04/05/22 mg-folic ac 400 mcg-vit K 25 mcg tablet (Adults Multivitamin) cholecalciferol (vitamin D3) 50 50 mcg PO DAILY 10/05/20 04/05/22 mcg (2,000 unit) capsule amitriptyline 25 mg tablet 25 mg PO DAILY 04/05/22 04/05/22 rimegepant 75 mg disintegrating 75 mg PO PRN PRN Migraine Headache 04/05/22 04/05/22 tablet (Nurtec ODT) Allergies Allergy/AdvReac Type Severity Reaction Status Date / Time ibuprofen Allergy Unknown Hives Verified 04/26/22 13:28 Review of Systems Review of Systems: CONSTITUTIONAL: Denies fever, chills, sweats. EYES: Denies visual changes, redness, discharge. ENT: Denies rhinorrhea, congestion, sore throat, bilateral ear pressure otalgia. CARDIOVASCULAR: Denies chest pain, palpitations, edema. RESPIRATORY: Denies dyspnea, wheezing, cough GASTROINTESTINAL: Denies abdominal pain, nausea, vomiting, diarrhea. GENITOURINARY: Denies dysuria, hematuria, abnormal discharge SKIN: Denies rash or itching. NEUROLOGIC: Denies numbness, or focal weakness. PSYCHIATRIC: Denies anxiety or depression. [facility] Past Medical History Medical History Claustrophobia Headache HTN (hypertension) Long COVID Obesity SOB (shortness of breath) on exertion Weight gain Surgical History Surgical History Hx of knee surgery meniscus repair Family History Family History Father Hypertension Mother Hypertension Sibling Hypertension Grandparent Lung cancer Other Asthma Depression HLD (hyperlipidemia) Social History Social History Smoking status: Never smoker Alcohol intake: current Alcohol use details: rare alcohol use Substance use: never Substance use type: does not use Additional occupation/education comments: [employer] Gender identity (if verbalized by the patient): Male Spiritual care concerns: No Comments At time of signature, I agree with nursing past medical, surgical, social and family history. There is no relevant family history pertinent to the presenting complaint. Exam Narrative: GENERAL: This is a well-nourished, well-developed patient, in mild distress. HEAD: normocephalic, atraumatic. EYES: Sclera clear/white. Vision is grossly intact. EARS: External ears normal, bilateral ears erythematous with bulging TMs T. Hearing grossly intact. NOSE: External nose normal without nasal discharge, nares without redness, has rhinorrhea. THROAT: Mucous membranes moist, posterior pharynx has NECK: Neck supple, non-tender CARDIOVASCULAR: Regular rate and rhythm without murmurs, gallops, or rubs. RESPIRATORY: Clear to auscultation. Breath sounds equal bilaterally. No wheezes, rales, or rhonchi. GASTROINTESTINAL: Not done SKIN: warm, intact with no suspicious lesions or rash, good texture and turgor. NEURO: awake, alert, and oriented to person, place and time. There were no obvious focal neurologic abnormalities. Steady gait EXTREMITIES: Normal range of motion. BACK: No
== END 2022-04-26 14:17 | disposition home or self-care (01) ==
PROVIDERS: Emergency Provider Nurse Practitioner; PCP Emergency Medicine
DX: J32.9 Chronic sinusitis, unspecified (principal); H93.8X3 Other specified disorders of ear, bilateral; I10 Essential (primary) hypertension; E66.9 Obesity, unspecified; Z68.41 Body mass index [BMI] 40.0-44.9, adult; F40.240 Claustrophobia; Z86.16 Personal history of COVID-19
CPT/HCPCS: 99213; G0463

== ENCOUNTER 2022-10-14 07:54 | Emergency (ER) | payer OTHER, SELFPAY ==
--- NOTE | ~2022-10-14 | XR_ITS ---
Clinical Indication: Chest pain PA and lateral views of the chest: Comparison: 09/23/2019 Findings: The lungs are clear, without evidence of focal consolidation or pleural effusion. Cardiome diastinal silhouette is within normal limits. Bones and soft tissues are unremarkable. Impression: Normal chest. Reviewed, dictated and finalized at [facility]. 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
[2022-10-14 08:06] VITALS: BP 147/88; PULSE 88; RESP 18; TEMP 36.5; O2SAT 100
[2022-10-14 08:16] VITALS: BP 147/88; PULSE 64; RESP 18; O2SAT 100
[2022-10-14 08:17] VITALS: BP 150/92; PULSE 64; RESP 17; O2SAT 97
--- NOTE | 2022-10-14 08:40 | ECG_ITS ---
Measurements Intervals [place] Rate: 65 P: 53 CT: 155 QRS: 25 QRSD: 114 T: -6 QT: 396 QTc: 412 Interpretive Statements SINUS RHYTHM WITH SINUS ARRHYTHMIA INCOMPLETE RIGHT BUNDLE BRANCH BLOCK [90+ ms QRS DURATION, TERMINAL R IN V1/V2, 40+ ms S IN I/aVL/V4/V5/V6] NONSPECIFIC T-WAVE ABNORMALITY ABNORMAL ECG COMPARED TO ECG 08/25/2019 14:42:10 SINUS ARRHYTHMIA NOW PRESENT T-WAVE ABNORMALITY NOW PRESENT Electronically Signed On 10-14-2022 14:12:57 BENCH CHEMIST by Kirk Patino M.D.
[2022-10-14 09:00] LABS: Basophils Percent Auto 0.5 % (0.2-1.2); Eosinophils Absolute Auto 0.1 K/mm3 (0-0.3); Eosinophils Percent Auto 1.1 % (0-4.4); Hematocrit 40.6 % (42.0-52.0); Hemoglobin 13.7 g/dL (14.0-18.0); Immature Granulocyte Absolute 0.01 K/mm3 (0.00-0.031); Immature Granulocyte Percent A 0.2 % (0-0.5); Lymphocytes Absolute Auto 2.31 K/mm3 (0.9-3.2); Lymphocytes Percent Auto 41.9 % (18.3-44.2); Mean Corpuscular HGB Conc 33.7 g/dl (32-36); Mean Corpuscular Hemoglobin 29.7 pg (26-34); Mean Corpuscular Volume 88.1 fl (80-100); Mean Platelet Volume 11.3 fl (7.4-10.4); Monocytes Absolute Auto 0.4 K/mm3 (0.1-0.6); Monocytes Percent Auto 6.9 % (2.6-8.5); Neutrophils Absolute Auto 2.7 K/mm3 (1.3-6.7); Neutrophils Percent Auto 49.4 % (45.5-73.1); Platelet Count Result 205 k/mm3 (150-375); Red Blood Count 4.61 M/mm3 (4.6-6.20); Red Cell Distribution Width 14.1 % (11.5-14.5); White Blood Count 5.5 K/mm3 (4.5-10.0)
[2022-10-14 09:11] LABS: Prothrombin Time 12.6 Seconds (11.1-14.7)
[2022-10-14 09:12] LABS: Partial Thromboplastin Time 27.9 SECONDS (22.3-36.8)
[2022-10-14 09:14] LABS: Alanine Aminotransferase 36 U/L (6-50); Albumin Level 4.4 g/dL (3.5-5.1); Alkaline Phosphatase 84 U/L (38-126); Anion Gap 5 mmol/L (8-16); Aspartate Amino Transferase 30 U/L (17-59); Bilirubin,Total 0.6 mg/dL (0.2-1.3); Blood Urea Nitrogen 9 mg/dL (9-20); Calcium 8.4 mg/dL (8.4-10.2); Carbon Dioxide 29 mmol/L (22-30); Chloride 106 mmol/L (98-107); Estimated Glomerular Filt Rate > 60; Glucose 96 mg/dL (65-110); Potassium 3.8 mmol/L (3.4-5.0); Sodium 140 mmol/L (137-145)
[2022-10-14 09:21] LABS: Troponin I 0.022 ng/mL (0.000-0.034)
[2022-10-14] MEDS: ACETAMINOPHEN 500 MG TABLET 1000 MG PO (09:36)
[2022-10-14 11:10] VITALS: BP 148/96; PULSE 67; RESP 18; O2SAT 97
[2022-10-14 12:39] VITALS: BP 145/96; PULSE 78; RESP 23; O2SAT 97
[2022-10-14 13:04] LABS: Troponin I 0.015 ng/mL (0.000-0.034)
--- NOTE | 2022-10-14 13:50 | ED.CHESTPAIN ---
HPI - Chest Pain General Chief Complaint: Chest Pain Stated Complaint: weird feeling in my chest Time Seen by Provider: 10/14/22 08:06 History of Present Illness HPI narrative: Patient is a 42-year-old male who presents ER with left-sided chest pain. Left upper chest worse with movement of his arm. No dyspnea. No fevers or chills or sweats. No syncope. No history of heart disease. Has had intermittent chest pain in the past. No previous stress test. Related Data Home Medications Medication Instructions Recorded Confirmed cider 1 tablet PO DAILY 08/25/19 04/05/22 hrfhxny-Ow-llydtmynzelklttc-tea 500 mg-100 mcg-300 mg-60 mg tab (Apple Cider Vinegar Plus) fish,flax,primrose,borag 1 cap PO DAILY 08/25/19 04/05/22 oils-om3,6,9 no5 400 mg-400 mg-200 mg capsule ([place] 3-6-9 Fatty Acids) multivit with minerals-iron 18 1 tablet PO DAILY 08/25/19 04/05/22 mg-folic ac 400 mcg-vit K 25 mcg tablet (Adults Multivitamin) cholecalciferol (vitamin D3) 50 50 mcg PO DAILY 10/05/20 04/05/22 mcg (2,000 unit) capsule amitriptyline 25 mg tablet 25 mg PO DAILY 04/05/22 04/05/22 Allergies Allergy/AdvReac Type Severity Reaction Status Date / Time ibuprofen Allergy Unknown Hives Verified 10/14/22 11:11 Review of Systems Review of Systems: All systems reviewed & are unremarkable except as noted in HPI and below Constitutional: Constitutional: Denies chills, Denies fatigue and Denies fever(s) ENT: Denies nasal congestion and Denies sore throat Cardiovascular: Cardiovascular: Reports chest pain, Denies radiating jaw, neck or arm pain and Denies slow heart rate Respiratory: Respiratory: Denies cough and Denies dyspnea Gastrointestinal: Gastrointestinal: Denies abdominal pain, Denies nausea and Denies vomiting PMFSH Past Medical History Medical History Claustrophobia Headache HTN (hypertension) Long COVID Obesity SOB (shortness of breath) on exertion Weight gain Surgical History Surgical History Hx of knee surgery meniscus repair Family History Family History Father Hypertension Mother Hypertension Sibling Hypertension Grandparent Lung cancer Other Asthma Depression HLD (hyperlipidemia) Social History Social History Smoking status: Never smoker Alcohol intake: current Alcohol use details: rare alcohol use Substance use: never Substance use type: does not use Living arrangements: with family Occupation/Education: occupation Additional occupation/education comments: [employer] Gender identity (if verbalized by the patient): Male Spiritual care concerns: No Exam Narrative: GENERAL: Well-appearing, well-nourished, and in no acute distress. HEAD: Normocephalic, atraumatic. EYES: PERRL and EOMI. NECK: Supple. CHEST: Clear to auscultation. No respiratory distress. Tender palpation left superior back. HEART: Regular rate and rhythm. Normal peripheral pulses. ABDOMEN: Soft, nontender, nondistended. EXTREMITIES: Normal range of motion. No edema. SKIN: Warm, dry, no rash. NEURO: Alert and oriented x3. PSYCH: Normal mood and affect. Course Course Emergency Course: Patient informed results. Recommend Tylenol for pain. Seems very mechanical. Discharge. Vital Signs Vital signs: Vital Signs Temperature 97.7 F 10/14/22 08:06 Pulse Rate 88 10/14/22 08:06 Respiratory Rate 18 10/14/22 08:06 Blood Pressure 147/88 H 10/14/22 08:06 Pulse Oximetry 100 10/14/22 08:06 Temperature 97.7 F 10/14/22 08:06 Pulse Rate 78 10/14/22 12:39 Respiratory Rate 23 H 10/14/22 12:39 Blood Pressure 145/96 H 10/14/22 12:39 Pulse Oximetry 97 10/14/22 12:39 MDM - Chest Pain Lab Data 10/14/22 08:52
[2022-10-14 14:13] VITALS: BP 145/96; PULSE 74; RESP 16
== END 2022-10-14 14:14 | disposition home or self-care (01) ==
PROVIDERS: Emergency Provider Emergency Medicine; PCP Emergency Medicine
DX: R07.89 Other chest pain (principal); I10 Essential (primary) hypertension; E66.9 Obesity, unspecified; I45.10 Unspecified right bundle-branch block; R94.31 Abnormal electrocardiogram [ECG] [EKG]
CPT/HCPCS: 36415; 71046; 80053; 84484; 85025; 85610; 85730; 93005; 99284; A9270

== ENCOUNTER 2023-03-08 18:21 | Emergency (ER) | payer OTHER, SELFPAY ==
--- NOTE | 2023-03-08 18:23 | ED.EAR ---
HPI - Ear Problem General Chief complaint: Ear Stated complaint: left ear pain Time Seen by Provider: 03/08/23 18:23 Source: patient Mode of arrival: ambulatory Limitations: no limitations History of Present Illness HPI Narrative: Patient is a 42-year-old male who presents with left ear pain for 3 days. Patient states he had double ear infection back in March and states it feels the same. Patient rates pain 5/10 at this time. Has use cough drops and tea with minor relief. Denies any congestion, fever, chills, sore throat, cough, nausea, vomiting, diarrhea. MD Complaint: ear pain Related Data Home Medications Medication Instructions Recorded Confirmed cider 1 tablet PO DAILY 08/25/19 03/08/23 ypijrvn-Lh-iqibonwzmvehlbvd-tea 500 mg-100 mcg-300 mg-60 mg tab (Apple Cider Vinegar Plus) fish,flax,primrose,borag 1 cap PO DAILY 08/25/19 03/08/23 oils-om3,6,9 no5 400 mg-400 mg-200 mg capsule ([place] 3-6-9 Fatty Acids) multivit with minerals-iron 18 1 tablet PO DAILY 08/25/19 03/08/23 mg-folic ac 400 mcg-vit K 25 mcg tablet (Adults Multivitamin) cholecalciferol (vitamin D3) 50 50 mcg PO DAILY 10/05/20 03/08/23 mcg (2,000 unit) capsule amitriptyline 25 mg tablet 25 mg PO DAILY PRN Migraine 10/24/22 03/08/23 Headache rimegepant 75 mg disintegrating See Rx Instructions .Route .COMPLEX 03/08/23 03/08/23 [facility] Allergies Allergy/AdvReac Type Severity Reaction Status Date / Time ibuprofen Allergy Unknown Hives Verified 03/08/23 18:23 Review of Systems Review of Systems: All systems reviewed & are unremarkable except as noted in HPI and below Constitutional: Constitutional: Denies body ache(s), Denies chills, Denies fever(s), Denies headache(s) and Denies malaise Eyes: Eyes: Denies blurry vision, Denies eye discharge and Denies irritation ENT: Reports otalgia, Denies headache(s), Denies nasal congestion, Denies nasal discharge and Denies sore throat Cardiovascular: Cardiovascular: Denies chest pain, Denies edema, Denies palpitations and Denies dyspnea on exertion Respiratory: Respiratory: Denies cough and Denies dyspnea on exertion Gastrointestinal: Gastrointestinal: Denies abdominal pain, Denies diarrhea, Denies nausea and Denies vomiting Musculoskeletal: Musculoskeletal: Denies back pain, Denies arthralgias and Denies muscle weakness Integumentary/Breasts: Skin/Breast: Denies pruritus and Denies rash Neurologic: Denies headache(s) Psychiatric: Psychiatric: Reports no additional psychiatric complaints Endocrine: Endocrine: Denies palpitations PMFSH Past Medical History Medical History Claustrophobia Headache HTN (hypertension) Long COVID Obesity SOB (shortness of breath) on exertion Weight gain Surgical History Surgical History Hx of knee surgery meniscus repair Family History Family History Father Hypertension Mother Hypertension Sibling Hypertension Grandparent Lung cancer Other Asthma Depression HLD (hyperlipidemia) Social History Social History Smoking status: Never smoker Alcohol intake: current Alcohol use details: rare alcohol use Substance use: never Substance use type: does not use Living arrangements: with family Occupation/Education: occupation Additional occupation/education comments: [employer] Gender identity (if verbalized by the patient): Male Spiritual care concerns: No Comments At time of signature, agree with nursing past medical, surgical, social and family history. There is no relevant family history pertinent to the presenting complaint? Exam Const: General: cooperative, healthy appearing, no acute distress and well nourished Nutritional Appearance: well nourished O
[2023-03-08 18:32] VITALS: BP 142/88; PULSE 84; RESP 16; TEMP 37.1; O2SAT 99
== END 2023-03-08 18:46 | disposition home or self-care (01) ==
PROVIDERS: Emergency Provider Nurse Practitioner Family; PCP Emergency Medicine
DX: H66.93 Otitis media, unspecified, bilateral (principal); I10 Essential (primary) hypertension; E66.9 Obesity, unspecified; Z68.27 Body mass index [BMI] 27.0-27.9, adult
CPT/HCPCS: 99213; G0463

== ENCOUNTER 2023-07-10 10:40 | Outpatient (CLI) | payer OTHER, SELFPAY ==
--- NOTE | 2023-07-10 11:00 | ECG_ITS ---
Measurements Intervals [place] Rate: 59 P: 45 AL: 157 QRS: 21 QRSD: 113 T: -21 QT: 376 QTc: 375 Interpretive Statements SINUS BRADYCARDIA INCOMPLETE RIGHT BUNDLE BRANCH BLOCK BORDERLINE ST-T WAVE ABNORMALITY- INFERIOR LEADS BORDERLINE ECG COMPARED TO ECG 10/14/2022 08:08:40 SINUS BRADYCARDIA NOW PRESENT Electronically Signed On 07-10-2023 11:33:42 SCENIC DESIGNER by Tommie Dubose D.O.
== END 2023-07-10 10:41 | disposition home or self-care (01) ==
LOC: ANHCARD 10:42
PROVIDERS: PCP Emergency Medicine; Visit Provider Emergency Medicine
DX: R06.09 Other forms of dyspnea (principal); R07.9 Chest pain, unspecified; R60.9 Edema, unspecified; I45.10 Unspecified right bundle-branch block
CPT/HCPCS: 93005

== ENCOUNTER 2023-10-26 08:09 | Emergency (ER) | payer OTHER, SELFPAY ==
--- NOTE | 2023-10-26 08:11 | ED.EAR ---
HPI - Ear Problem General Chief complaint: Ear Stated complaint: both ears painful Time Seen by Provider: 10/26/23 08:11 Source: patient Mode of arrival: ambulatory Limitations: no limitations History of Present Illness HPI Narrative: Israel is a 43-year-old male patient presenting to the clinic today with complaints of bilateral ear pain x2 days. He reports no known fever, chills, or body aches. Does have some slight nasal congestion. Related Data Home Medications Medication Instructions Recorded Confirmed cider 1 tablet PO DAILY 08/25/19 10/26/23 [id number]-Mw-zcpkhgptkebgwcbh-tea 500 mg-100 mcg-300 mg-60 mg tab (Apple Cider Vinegar Plus) fish,flax,primrose,borag 1 cap PO DAILY 08/25/19 10/26/23 oils-om3,6,9 no5 400 mg-400 mg-200 mg capsule ([place] 3-6-9 Fatty Acids) multivit with minerals-iron 18 1 tablet PO DAILY 08/25/19 10/26/23 mg-folic ac 400 mcg-vit K 25 mcg tablet (Adults Multivitamin) cholecalciferol (vitamin D3) 50 50 mcg PO DAILY 10/05/20 10/26/23 mcg (2,000 unit) capsule amitriptyline 25 mg tablet 25 mg PO DAILY PRN Migraine 10/24/22 10/26/23 Headache rimegepant 75 mg disintegrating See Rx Instructions .Route .COMPLEX 03/08/23 10/26/23 tablet (Nurtec ODT) Allergies Allergy/AdvReac Type Severity Reaction Status Date / Time ibuprofen Allergy Unknown Hives Verified 10/26/23 08:29 Review of Systems Review of Systems: Pertinent positives per HPI. Patient denies any fever, chills, rash, headache, visual changes, dizziness, cough, runny nose, sore throat, shortness of breath, chest pain, palpitations, nausea, vomiting, diarrhea, constipation, abdominal pain, or any urinary issues. [facility] Past Medical History Medical History Chest pain Claustrophobia Headache HTN (hypertension) Long COVID Obesity Palpitation Screening cholesterol level SOB (shortness of breath) on exertion Weight gain Surgical History Surgical History Hx of knee surgery meniscus repair Family History Family History Father Hypertension Mother Hypertension Sibling Hypertension Grandparent Lung cancer Other Asthma Depression HLD (hyperlipidemia) Social History Social History Smoking status: Never smoker Alcohol intake: current Alcohol use details: rare alcohol use Substance use: never Substance use type: does not use Current Housing: Decline to Answer Concerned About Future Housing: Decline to Answer Difficulty Paying Gas/Electric Bills: Decline to Answer Difficulty Paying for Meds: Decline to Answer Currently Unemployed: Decline to Answer Education: Decline to Answer Difficulty w/ Childcare or Family Care: Decline to Answer Living arrangements: with family Occupation/Education: occupation Additional occupation/education comments: [employer] Gender identity (if verbalized by the patient): Male Spiritual care concerns: No Comments At the time of my signature, I reviewed and agree with the nursing past medical, surgical, social, and family history. There is no relevant family history pertinent to the patient complaint. Exam Narrative: General: Well-developed, well nourished, in no apparent distress Head: Normocephalic, atraumatic Eyes: Pupils equally round and reactive to light bilaterally, EOM intact, sclera and conjunctive clear, no discharge, lids normal Ears: TMs intact, bulging, ear canals clear, no drainage, grossly hearing normal. Nose: Nares patent, clear discharge, no inflammation, no sinus tenderness. Mouth: Oropharynx red without lesions or masses, good dentition, MMM. Neck: Supple, trachea midline, no enlargement of anterior or posterior cervical nodes, no thyroid masses or goiter palpab
[2023-10-26 08:21] VITALS: BP 150/97; PULSE 64; RESP 16; TEMP 36.6; O2SAT 99
== END 2023-10-26 08:48 | disposition home or self-care (01) ==
PROVIDERS: Emergency Provider Nurse Practitioner Family; PCP Emergency Medicine
DX: H69.93 Unspecified Eustachian tube disorder, bilateral (principal); I10 Essential (primary) hypertension; E66.9 Obesity, unspecified; Z68.41 Body mass index [BMI] 40.0-44.9, adult; Z86.16 Personal history of COVID-19
CPT/HCPCS: 87081; 87880; 99213; G0463

== ENCOUNTER 2023-12-21 19:44 | Emergency (ER) | payer OTHER, SELFPAY ==
[2023-12-21 19:49] VITALS: BP 133/85; PULSE 99; RESP 16; TEMP 36.4; O2SAT 97
--- NOTE | 2023-12-21 19:49 | ED.URI ---
HPI - URI/Sore Throat General Chief Complaint: Upper Respiratory Infection Stated Complaint: Sinus Infection Symptoms Time Seen by Provider: 12/21/23 19:50 Source: patient, RN notes reviewed and old records reviewed Mode of arrival: ambulatory Limitations: no limitations History of Present Illness HPI Narrative: 43-year-old male presents to the [facility] with sinus congestion that started yesterday. States he did take a Benadryl last night, unsure if it actually helped. States that while he was sitting outside tonight just prior to arrival, at his [employer] game his symptoms became worse. States he has pressure in his ears, sinuses. Patient recently on prednisone 10/26/23 Patient also reports that he used to get a ?yearly Kenalog shot. ? Patient denies any fevers, coughing. Denied any other treatment prior to arrival Related Data Home Medications Medication Instructions Recorded Confirmed cider 1 tablet PO DAILY 08/25/19 12/21/23 [id number]-Dp-vgfjugitxcgkfrih-tea 500 mg-100 mcg-300 mg-60 mg tab (Apple Cider Vinegar Plus) fish,flax,primrose,borag 1 cap PO DAILY 08/25/19 12/21/23 oils-om3,6,9 no5 400 mg-400 mg-200 mg capsule ([place] 3-6-9 Fatty Acids) multivit with minerals-iron 18 1 tablet PO DAILY 08/25/19 12/21/23 mg-folic ac 400 mcg-vit K 25 mcg tablet (Adults Multivitamin) cholecalciferol (vitamin D3) 50 50 mcg PO DAILY 10/05/20 12/21/23 mcg (2,000 unit) capsule amitriptyline 25 mg tablet 25 mg PO DAILY PRN Migraine 10/24/22 12/21/23 Headache rimegepant 75 mg disintegrating See Rx Instructions .Route .COMPLEX 03/08/23 12/21/23 tablet (Nurtec ODT) Allergies Allergy/AdvReac Type Severity Reaction Status Date / Time ibuprofen Allergy Unknown Hives Verified 12/21/23 19:46 Review of Systems Review of Systems: All systems reviewed & are unremarkable except as noted in HPI and below Constitutional: Constitutional: Reports no additional constitutional complaints Eyes: Eyes: Reports no additional eye complaints ENT: Reports as per HPI, Reports otalgia and Reports nasal congestion Cardiovascular: Cardiovascular: Reports no additional cardiovascular complaints, Denies chest pain and Denies dyspnea Respiratory: Respiratory: Reports no additional respiratory complaints, Denies chest congestion, Denies cough and Denies dyspnea Gastrointestinal: Gastrointestinal: Reports no additional gastrointestinal complaints, Denies abdominal pain, Denies nausea and Denies vomiting Musculoskeletal: Musculoskeletal: Reports no additional musculoskeletal complaints Integumentary/Breasts: Skin/Breast: Reports system reviewed and no additional complaints, except as docu Neurologic: Reports system reviewed and no additional complaints, except as documented Psychiatric: Psychiatric: Reports no additional psychiatric complaints Allergic/Immunologic: Allergic/Immunologic: Reports no additional allergic/immunologic complaints PMFSH Past Medical History Medical History Chest pain Claustrophobia Headache HTN (hypertension) Long COVID Obesity Palpitation Screening cholesterol level SOB (shortness of breath) on exertion Weight gain Surgical History Surgical History Hx of knee surgery meniscus repair Family History Family History Father Hypertension Mother Hypertension Sibling Hypertension Grandparent Lung cancer Other Asthma Depression HLD (hyperlipidemia) Social History Social History Smoking status: Never smoker Alcohol intake: current Alcohol use details: rare alcohol use Substance use: never Substance use type: does not use Current Housing: Decline to Answer Concerned About Future Housing: Decline to Answer Difficulty Paying Gas/Electric Bills: D
== END 2023-12-21 20:10 | disposition home or self-care (01) ==
PROVIDERS: Emergency Provider Nurse Practitioner; PCP Emergency Medicine
DX: H65.03 Acute serous otitis media, bilateral (principal); J30.2 Other seasonal allergic rhinitis; I10 Essential (primary) hypertension; E66.9 Obesity, unspecified; Z68.41 Body mass index [BMI] 40.0-44.9, adult
CPT/HCPCS: 99211; G0463

== ENCOUNTER 2023-12-24 21:36 | Emergency (ER) | payer OTHER, SELFPAY ==
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
[2023-12-24 21:40] VITALS: PULSE 80; RESP 15; TEMP 36.6; O2SAT 99
[2023-12-24 21:51] VITALS: BP 160/93
--- NOTE | 2023-12-24 21:57 | ECG_ITS ---
SEE SCANNED COPY FOR CONFIRMED REPORT MTDD
[2023-12-24 22:08] LABS: Basophils Percent Auto 0.4 % (0.2-1.2); Eosinophils Absolute Auto 0.1 K/mm3 (0-0.3); Eosinophils Percent Auto 0.9 % (0-4.4); Hematocrit 44.4 % (42.0-52.0); Hemoglobin 14.5 g/dL (14.0-18.0); Immature Granulocyte Absolute 0.01 K/mm3 (0.00-0.031); Immature Granulocyte Percent A 0.2 % (0-0.5); Lymphocytes Absolute Auto 1.78 K/mm3 (0.9-3.2); Lymphocytes Percent Auto 33.3 % (18.3-44.2); Mean Corpuscular HGB Conc 32.7 g/dl (32-36); Mean Corpuscular Hemoglobin 29.4 pg (26-34); Mean Corpuscular Volume 89.9 fl (80-100); Monocytes Absolute Auto 0.4 K/mm3 (0.1-0.6); Monocytes Percent Auto 7.5 % (2.6-8.5); Neutrophils Absolute Auto 3.1 K/mm3 (1.3-6.7); Neutrophils Percent Auto 57.7 % (45.5-73.1); Platelet Count Result 224 k/mm3 (150-375); Red Blood Count 4.94 M/mm3 (4.6-6.20); Red Cell Distribution Width 13.6 % (11.5-14.5); White Blood Count 5.3 K/mm3 (4.5-10.0)
[2023-12-24 22:19] LABS: Ethanol < 10 mg/dL (<10)
[2023-12-24 22:26] LABS: Appearance Urine Clear (Clear); Bilirubin Urine Negative (Negative); Blood Urine Negative (Negative); Color Urine Yellow (Yellow); Glucose Urine UA Negative (Negative); Ketones Urine Trace mg/dL (Negative); Leukocyte Esterase Ur Negative LEU/UL (Negative); Nitrate Urine Negative (Negative); Protein Urine Negative (Negative); Specific Grav Ur 1.019 (1.001-1.035); Urobilinogen Urine 0.2 mg/dL (<2.0); pH Urine 6.5 (5.0-9.0)
[2023-12-24 22:28] LABS: Alanine Aminotransferase 34 U/L (6-50); Albumin Level 4.7 g/dL (3.5-5.1); Alkaline Phosphatase 83 U/L (38-126); Anion Gap 5 mmol/L (4-12); Aspartate Amino Transferase 29 U/L (17-59); Bilirubin,Total 0.7 mg/dL (0.2-1.3); Blood Urea Nitrogen 14 mg/dL (9-20); Calcium 9.1 mg/dL (8.4-10.2); Carbon Dioxide 32 mmol/L (22-30); Chloride 101 mmol/L (98-107); Estimated CRCL calculation 115 ml/min; Estimated Glomerular Filt Rate > 60; Glucose 105 mg/dL (65-110); Potassium 3.1 mmol/L (3.4-5.0); Sodium 138 mmol/L (137-145)
--- NOTE | 2023-12-24 22:32 | PC.NURSE ---
Pt to CT at this time. Pt alert and upright on stretcher during transport out of ED.
[2023-12-24 22:36] LABS: Troponin I < 0.012 ng/mL (0.000-0.034)
[2023-12-24 22:37] LABS: Add Urine Microscopic? NO
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
[2023-12-24 23:02] VITALS: BP 142/94; PULSE 80; RESP 13; O2SAT 99
== END 2023-12-24 23:18 | disposition home or self-care (01) ==
PROVIDERS: Emergency Provider Emergency Medicine; PCP Emergency Medicine
DX: R07.89 Other chest pain (principal); I10 Essential (primary) hypertension; E66.9 Obesity, unspecified; Z68.41 Body mass index [BMI] 40.0-44.9, adult; I45.10 Unspecified right bundle-branch block; R94.31 Abnormal electrocardiogram [ECG] [EKG]; K40.90 Unilateral inguinal hernia, without obstruction or gangrene, not specified as recurrent; M47.812 Spondylosis without myelopathy or radiculopathy, cervical region; V49.40XA Driver injured in collision with unspecified motor vehicles in traffic accident, initial encounter
CPT/HCPCS: 36415; 70450; 71260; 72125; 74177; 80053; 80307; 81003; 84484; 85025; 93005; 99284; Q9967

== ENCOUNTER 2023-12-30 14:16 | Outpatient (CLI) | payer OTHER, SELFPAY ==
--- NOTE | ~2023-12-30 | XR_ITS ---
EXAMINATION: XR_KNEE1-2VRT_CR DATE: 12/30/2023 15:09 INDICATION: Right knee pain. TECHNIQUE: 2 views of right knee standing were obtained. COMPARISON: None. FINDINGS: Bone alignment is normal. No fracture. There is mild osteoarthritis of medial compartment. No knee joint effusion. IMPRESSION: 1. Mild right knee osteoarthritis. Reviewed, dictated and finalized at location A.
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
--- NOTE | ~2023-12-30 | XR_ITS ---
EXAMINATION: XR_[id number]_CR DATE: 12/30/2023 15:08 INDICATION: Left knee pain. TECHNIQUE: 2 views of left knee standing were obtained. COMPARISON: None. FINDINGS: Bone alignment is normal. No fracture. Joint spaces are normal. No knee joint effusion. IMPRESSION: 1. Normal left knee. Reviewed, dictated and finalized at location A. IMPRESSION: 1. Normal left knee.
--- NOTE | ~2023-12-30 | XR_ITS ---
EXAMINATION: XR shoulder RT min 2V DATE: 12/30/2023 15:10 INDICATION: Right shoulder pain. TECHNIQUE: 4 views of right shoulder were obtained. COMPARISON: None. FINDINGS: Bone alignment is normal. No fracture. Joint spaces are normal. IMPRESSION: 1. Normal right shoulder. Reviewed, dictated and finalized at location A. IMPRESSION: 1. Normal right shoulder.
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
--- NOTE | ~2023-12-30 | XR_ITS ---
EXAMINATION: XR shoulder LT min 2V DATE: 12/30/2023 15:10 INDICATION: Left shoulder pain. TECHNIQUE: 4 views of left shoulder were obtained. COMPARISON: None. FINDINGS: Bone alignment is normal. No fracture. Glenohumeral joint is normal. Acromioclavicular join t is normal. IMPRESSION: 1. Normal left shoulder. Reviewed, dictated and finalized at location A. IMPRESSION: 1. Normal left shoulder.
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
== END 2023-12-30 14:17 | disposition home or self-care (01) ==
PROVIDERS: PCP Emergency Medicine; Visit Provider Emergency Medicine
DX: M25.531 Pain in right wrist (principal); M25.532 Pain in left wrist; M54.6 Pain in thoracic spine; M25.511 Pain in right shoulder; M25.512 Pain in left shoulder; M54.50 Low back pain, unspecified; M25.562 Pain in left knee; M79.641 Pain in right hand; M79.642 Pain in left hand; M17.11 Unilateral primary osteoarthritis, right knee
CPT/HCPCS: 72070; 72100; 73030; 73100; 73120; 73560

== ENCOUNTER 2024-07-11 09:36 | Outpatient (CLI) | payer OTHER, SELFPAY ==
--- NOTE | 2024-07-11 09:57 | EST_ITS ---
Patient Info Name: Edilson Garnica Age: 44 years : 1980 Gender: Male Ht: 71 in Wt: 310 lbs BSA: 2.72 m2 HR: 63 bpm BP: 120 / 77 mmHg Exam Date: 07/11/2024 10:08 AM Exam Location: Echo Lab Patient Status: Outpatient Admit Date: 07/11/2024 Staff Ordering Physician: Tommie Dubose DO Attending Provider: Tommie Dubose DO Exercise Technologist: Tyesha Mata RDCS Exercise Physician: Tommie Dubose DO Exam Type: CA stress test treadmill Study Info A treadmill exercise stress test was performed. Summary 1. 1. Negative Doyle exercise stress test for ischemic ST changes by ECG criteria. 2. 2. Reduced functional capacity, achieving 8.9 METs of workload. 3. 3. Appropriate HR response to exercise. 4. 4. Appropriate HR recovery at 1 minute post exercise. 5. 5. No imaging with stress testing. 6. 6. Patient informed of the above results. Protocol: Doyle Stress ECG Details Stage: REST Duration (min): 1 min : 20 sec Speed (mph): 0.0 Grade (%): 0 HR (bpm): 61 SBP (mmHg): 120 DBP (mmHg): 77 METS: --- Stage: REST Duration (min): 14 min : 35 sec Speed (mph): 0.0 Grade (%): 0 HR (bpm): 78 SBP (mmHg): 120 DBP (mmHg): 77 METS: --- Stage: STAGE 1 Duration (min): 1 min : 0 sec Speed (mph): 1.7 Grade (%): 10 HR (bpm): 114 SBP (mmHg): 120 DBP (mmHg): 77 METS: --- Stage: STAGE 1 Duration (min): 2 min : 0 sec Speed (mph): 1.7 Grade (%): 10 HR (bpm): 123 SBP (mmHg): 120 DBP (mmHg): 77 METS: --- Stage: STAGE 1 Duration (min): 3 min : 0 sec Speed (mph): 1.7 Grade (%): 10 HR (bpm): 129 SBP (mmHg): 131 DBP (mmHg): 83 METS: --- Stage: STAGE 2 Duration (min): 1 min : 0 sec Speed (mph): 2.5 Grade (%): 12 HR (bpm): 144 SBP (mmHg): 131 DBP (mmHg): 83 METS: --- Stage: STAGE 2 Duration (min): 2 min : 0 sec Speed (mph): 2.5 Grade (%): 12 HR (bpm): 153 SBP (mmHg): 131 DBP (mmHg): 83 METS: --- Stage: STAGE 2 Duration (min): 3 min : 0 sec Speed (mph): 2.5 Grade (%): 12 HR (bpm): 157 SBP (mmHg): 125 DBP (mmHg): 67 METS: --- Stage: STAGE 3 Duration (min): 1 min : 0 sec Speed (mph): 3.4 Grade (%): 14 HR (bpm): 168 SBP (mmHg): 167 DBP (mmHg): 101 METS: --- Stage: STAGE 3 Duration (min): 1 min : 3 sec Speed (mph): 3.4 Grade (%): 14 HR (bpm): 168 SBP (mmHg): 167 DBP (mmHg): 101 METS: --- Stage: RECOVERY Duration (min): 0 min : 56 sec Speed (mph): 0.0 Grade (%): 0 HR (bpm): 147 SBP (mmHg): 167 DBP (mmHg): 101 METS: --- Stage: RECOVERY Duration (min): 1 min : 56 sec Speed (mph): 0.0 Grade (%): 0 HR (bpm): 114 SBP (mmHg): 167 DBP (mmHg): 101 METS: --- Stage: RECOVERY Duration (min): 2 min : 56 sec Speed (mph): 0.0 Grade (%): 0 HR (bpm): 101 SBP (mmHg): 167 DBP (mmHg): 101 METS: --- Stage: RECOVERY Duration (min): 3 min : 24 sec Speed (mph): 0.0 Grade (%): 0 HR (bpm): 103 SBP (mmHg): 159 DBP (mmHg): 69 METS: --- Rest HR: 78 bpm Peak HR: 168 bpm Rest Sys BP: 120 mmHg Peak Sys BP: 167 mmHg Max Pred HR: 177 bpm % Max Pred HR: 95 % Target HR: 150 bpm Max RPP: 28,056 bpm*mmHg Walker Score: 3 Termination Reason: Reached target heart rate or workload Cardiac Symptoms: Shortness of breath Max ST Seg Deviation: -0.80 mm Total Time: 7 min : 3 sec Rest Eastman BP: 77 mmHg Peak Eastman BP: 101 mmHg Angina Score: None Total METS: 8.9 Resting ECG Sinus rhythm, IRBBB. Stress ECG No ST changes. Arrhythmias None. Report Signatures
== END 2024-07-11 09:37 | disposition home or self-care (01) ==
PROVIDERS: PCP Emergency Medicine; Visit Provider Internal Medicine Cardiovascular Disease
DX: R07.9 Chest pain, unspecified (principal)
CPT/HCPCS: 93017

== ENCOUNTER 2024-12-08 21:21 | Emergency (ER) | payer OTHER, SELFPAY ==
--- NOTE | ~2024-12-08 | XR_ITS ---
XR chest 2V Ordering provider: Anant Olvera MD History: 44 years Male with . sob, hx of high BP . Comparison: October 14, 2022 FINDINGS: MEDIASTINUM: The cardiac silhouette is slightly enlarged. LUNGS: No infiltrates, effusions or pneumothorax. OTHER: No free air under the diaphragm. IMPRESSION: No acute cardiopulmonary pathology. Reviewed, dictated and finalized at location A.
--- OUTSIDE RECORDS SUMMARY | 2024-12-08 21:24 | XMS_ITS | Clinical Summary ---
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 Gender Identity Not on file Sexual Orientation Not on file Plan of Treatment Health Maintenance Due Date Last Done Comments Hepatitis C Virus (HCV) Screening 1980 TdaP Immunization 1980 Hepatitis B Immunization (1 of 3 - 19+ 3-dose series) 2000 Influenza Immunization (#1) 2024 SARS-COV-2 Immunization (2 - 2023- season) 2024 07/29/2021 Respiratory Syncytial Virus (RSV) Immunization (Adult) (1 - 1-dose 75+ series) 2056 Meningococcal Immunization (ACWY) Aged Out No longer eligible based on patient's age to complete this topic Pneumococcal Immunization Combined Aged Out No longer eligible based on patient's age to complete this topic Rotavirus Immunization Aged Out No lo nger eligible based on patient's age to complete this topic Insurance [employer] GENER[employer] on file
--- OUTSIDE RECORDS SUMMARY | 2024-12-08 21:25 | XMS_ITS | Encounter Summary ---
Author Organization [facility] Address [address] [facility] [place] [address] Phone Care Team Providers Care Social Problems Specialist Name Role Phone Fredy Shah MD Primary Care Provider Fredy Neff MD Primary Care Provide r Encounter Details Date Type Department Care Team (Latest Contact Info) Description 08/25/2019 Orders Only [facility] Scanning, Provider Social History Tobacco Use Types Packs/Day Years Used Date Smoking Tobacco: Never Assessed Alcohol Use Standard Drinks/Week Comments Yes 0 (1 standard drink = 0.6 oz pur e alcohol) Sex and Gender Information Value Date Recorded Sex Assigned at Not on file 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 Gender Identity Not on file Sexual Orientation Not on file documented as of this encounter Plan of Treatment Not on file documented as of this encounter Procedures Procedure Name Priority Date/Time Associated Diagnosis Comments SCAN - RADIOLOGY/IMAGING 08/25/2019 CARDIOLOGY DOCUMENT SCAN 08/25/2019 documented in this encounter Results * SCAN - RADIOLOGY/IMAGING (08/25/2019) Anatomical Region Laterality Modality Other us Provider Scanning Final Result * SCAN - CARDIOLOGY (08/25/2019) Anatomical Region Laterality Modality Other us Provider Scanning CV CARDIAC SERVICES PROCEDURES Final Result documented in this encounter Visit Diagnoses Not on filedocumented in this encounter Care Teams Social Problems Specialist Relationship Specialty Start Date End Date Fredy Shah MD PCP - General 09/20/12 05/23/21 Fredy Neff MD [address] [place] [address] PCP - General Emergency Medicine 05/24/21 documented as of this encounter
--- OUTSIDE RECORDS SUMMARY | 2024-12-08 21:25 | XMS_ITS | Encounter Summary ---
Author Organization [employer] [facility] Address [address] [place] [address] Care Team Providers Care Boat Motor Mechanic Name Role Phone Omar Odonnell MD Primary Care Provider [phone] Encounter Details Date Type Department Care Team (Late st Contact Info) Description 03/10/2004 Outpatient Historical [facility] Nic Brown MD 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
--- OUTSIDE RECORDS SUMMARY | 2024-12-08 21:25 | XMS_ITS | Encounter Summary ---
Author Organization [facility] Address [address] [place] [address] Phone Care Team Providers Care Media Center Director School Name Role Phone Fredy Shah MD Primary Care Provider [phone] Fredy Neff MD Primary Care Provide r Encounter Details Date Type Department Care Team (Latest Contact Info) Description 11/27/2020 Orders Only [facility] Scanning, Provider Social History Tobacco Use Types Packs/Day Years Used Date Smoking Tobacco: Never Assessed Alcohol Use Standard Drinks/Week Comments Yes 0 (1 standard drink = 0.6 oz pur e alcohol) Sex and Gender Information Value Date Recorded Sex Assigned at Not on file 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 Gender Identity Not on file Sexual Orientation Not on file documented as of this encounter Plan of Treatment Not on file documented as of this encounter Procedures Procedure Name Priority Date/Time Associated Diagnosis Comments SCAN - NEUROLOGY 11/27/2020 documented in this encounter Results * SCAN - NEUROLOGY (11/27/2020) Anatomical Region Laterality Modality Other us Provider Scanning Final Result documented in this encounter Visit Diagnoses Not on filedocumented in this encounter Care Teams Media Center Director School Relationship Specialty Start Date End Date Fredy Shah MD PCP - General 09/20/12 05/23/21 Fredy Neff MD [address] [place] [address] PCP - General Emergency Medicine 05/24/21 documented as of this encounter
--- OUTSIDE RECORDS SUMMARY | 2024-12-08 21:25 | XMS_ITS | Patient Health Record ---
Author Organization [facility] Address [address] [place], [place] [id number] Care Team Providers Care Junior Legal Secretary Name Role Phone Fredy Neff Unavailable Unavailable Allergies Allergen (clinical drug ingredient) Drug/Non Drug Allergy documented on EMR Reaction Allergy Type Onset Date Status ibuprofen Ibuprofen Unknown Drug Allergy Active Reason For Referral No Information Medications Medication SIG (Take, Route, Frequency, Duration) Notes Start Date End Date Status Sertraline HCl 50 MG Oral for 90 Days Active Gabapentin 100 MG TAKE 1 CAPSULE BY MO UTH EVERYDAY AT BEDTIME Oral for 90 Days Active Rizatriptan Benzoate 5 MG TAKE 1 TAB BY MOUTH ONCE AT FIRST SIGN OF MIGRAINE. MAY REPEAT ONE TIME AFTER 2 HOURS IF NEEDED. Oral for 30 Days Active hydroCHLOROthiazide 25 MG Oral for 90 Days Active amLODIPine Besylate 10 MG Oral for 90 Days Active Plan Of Treatment No Information Insurance Providers Payer Name Payer Address Payer Phone Subscriber Number Group Number Insured Name Patient Relationship to Insured Coverage Start Date Coverage End Date [employer] [address] [place] [address] [id number] DANIA GLASGOW Self - patient is the insured Medical (General) History Medical History History ICD Code Blood clots hypertension Surgical History Surgery Date(Month/Year) Rt knee scope
--- OUTSIDE RECORDS SUMMARY | 2024-12-08 21:25 | XMS_ITS | Encounter Summary ---
Author Organization [facility] Address [address] [place] [address] Phone Care Team Providers Care Environmental Remediation Consultant Name Role Phone Fredy Shah MD Primary Care Provider [phone] Fredy Neff MD Primary Care Provide r Encounter Details Date Type Department Care Team (Latest Contact Info) Description 11/29/2020 Orders Only [facility] Scanning, Provider Social History Tobacco Use Types Packs/Day Years Used Date Smoking Tobacco: Never Assessed Alcohol Use Standard Drinks/Week Comments Yes 0 (1 standard drink = 0.6 oz pur e alcohol) Sex and Gender Information Value Date Recorded Sex Assigned at Not on file 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 Gender Identity Not on file Sexual Orientation Not on file documented as of this encounter Plan of Treatment Not on file documented as of this encounter Procedures Procedure Name Priority Date/Time Associated Diagnosis Comments SCAN - RADIOLOGY/IMAGING 11/29/2020 documented in this encounter Results * SCAN - RADIOLOGY/IMAGING (11/29/2020) Anatomical Region Laterality Modality Other us Provider Scanning Final Result documented in this encounter Visit Diagnoses Not on filedocumented in this encounter Care Teams Environmental Remediation Consultant Relationship Specialty Start Date End Date Fredy Shah MD PCP - General 09/20/12 05/23/21 Fredy Neff MD [address] [place] [address] PCP - General Emergency Medicine 05/24/21 documented as of this encounter
--- OUTSIDE RECORDS SUMMARY | 2024-12-08 21:25 | XMS_ITS | Clinical Summary ---
Author Organization [facility] Address [address] [place] [address] Care Team Providers Care Airplane Dispatch Clerk Name Role Phone Fredy Neff MD Primary Care Provide r Allergies Active Allergy Reactions Criticality Noted Date Comments Ibuprofen Hives,Anaphylaxis High 06/03/2016 Medications amLODIPine (NORVASC) 10 mg tablet Take 10 mg by mouth daily 1 Active topiramate (TOPAMAX) 25 mg tablet 1 Active cyclobenzaprine (FLEXERIL) 5 mg tablet 1 Active hydroCHLOROthiazi de (HYDRODIURIL) 25 mg tablet Take 25 mg by mouth daily Active cholecalciferol, vitamin D3, (VITAMIN D3 ORAL) Take by mouth Active multivit-min/iron /folic acid/K (ADULTS MULTIVITAMIN ORAL) Take by mouth Active docosahexaenoic acid/epa (FISH OIL ORAL) Take by mouth Active hydrOXYzine (ATARAX) 10 mg tablet Take 1 tablet (10 mg total) by mouth 4 (four) times a day as needed for anxiety (sleeping) 30 tablet 2 2 Active omega-3s/dha/epa/ fish oil (OMEGA 3 ORAL) Take by mouth Active amoxicillin-clavu lanate (AUGMENTIN) 500-125 mg per tablet 2 Active Nurtec ODT tablet,disintegra ting TAKE 75 MG BY MOUTH ONCE DAILY NEEDED FOR MIGRAINE 2 Active apple cider vinegar 600 mg capsule Take by mouth Active sertraline (ZOLOFT) 50 mg tablet Take 50 mg by mouth daily Active Active Problems Problem Noted Date Diagnosed Date Long COVID 07/07/2022 COVID-19 david santiago manifes ting chronic concentration deficit 07/07/2022 COVID-19 david santiago manifesting chronic headach e 07/07/2022 Migraines 04/14/2022 Post covid-19 condition, unspecified 09/23/2021 Overview (12/20/2021): - encouraged sleep study with PCP - reviewed sleep hygiene measures and encouraged meditation - encouraged to discuss mental health with PCP or dietician - referral to [facility] HOTEL OPERATION MANAGER - follow up with Neurology - continue medications and pacing - follow up with COVID clinic at [facility] Obstructive sleep apnea syndrome 10/11/2017 Hypertension 10/11/2017 Class 2 obesity 10/11/2017 Allergic rhinitis 10/11/2017 Bilateral plantar fasciitis 06/18/2016 Vasectomy evaluation 06/03/2016 Surgical History Surgery Date Site/Laterality Comments KNEE SURGERY x2 Social History Tobacco Use Types Packs/Day Years Used Date Smoking Tobacco: Never Smokeless Tobacco: Never Tobacco Cessation:Counseling Given: Not Answered Alcohol Use Standard Drinks/Week Comments Yes 0 (1 standard drink = 0.6 oz pur e alcohol) Sex and Gender Information Value Date Recorded Sex Assigned at Not on file Legal Sex Male 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 Gender Identity Not on file Sexual Orientation Not on file Obstetrics History Last Filed Vital Signs Vital Sign Reading Time Taken Comments Blood Pressure 107/71 09/05/2022 10:26 AM RAISIN WASHER neck 16 waist 52 Pulse 71 09/05/2022 10:26 AM RAISIN WASHER Temperature 36.8 C (98.2 F) 07/07/2022 8:57 AM RAISIN WASHER Respiratory Rate - - Oxygen Saturation 97% 04/07/2022 3:2 8 PM CDT Inhaled Oxygen Concentration - - Weight 140.6 kg (310 lb) 10/03/2022 9:5 5 AM RAISIN WASHER Height 180.3 cm (5' 10.98 ) 09/05/2022 10:26 AM RAISIN WASHER Body Mass Index 43.26 09/05/2022 10:26 AM RAISIN WASHER Plan of Treatment Health Maintenance Due Date Last Done Comments Depression Screening 1981 Hepatitis C Screening 1981 Prostate Cancer Screening-PSA 1981 DTaP/Tdap/Td Vaccine (1 - Tdap) 1992 Varicella Vaccines (1 of 2 - 13+ 2-dose series) 1994 Hepatitis B Screening 1999 Regular Well Visit/Exam 18-64 1999 Covid-19 Vaccine (4 - 2023-2 5 season) 2024 07/29/2021, 10/27/2020, 10/06/2020 Influenza Vaccine (#1) 2024 HPV Vaccines Aged Out No longer eligi ble based on patient's age to complete this topic Pneumococcal vaccine <65 Aged Out No longer eligible based on patient's age to complete this topic Insurance [facility] Care Teams Airplane Dispatch Clerk Relationship Specialty Start Date End Date Fredy Neff MD [address] [place] [address] PCP - General Emergency Medicine 05/24/21
--- OUTSIDE RECORDS SUMMARY | 2024-12-08 21:25 | XMS_ITS | Encounter Summary ---
Author Organization [facility] Address [address] [place] [address] Phone Care Team Providers Care Supply Chain Planner Name Role Phone Fredy Shah MD Primary Care Provider [phone] Fredy Neff MD Primary Care Provide r Encounter Details Date Type Department Care Team (Latest Contact Info) Description 10/18/2020 Orders Only [facility] Scanning, Provider Social History Tobacco Use Types Packs/Day Years Used Date Smoking Tobacco: Never Assessed Alcohol Use Standard Drinks/Week Comments Yes 0 (1 standard drink = 0.6 oz pur e alcohol) Sex and Gender Information Value Date Recorded Sex Assigned at Not on file 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 Gender Identity Not on file Sexual Orientation Not on file documented as of this encounter Plan of Treatment Not on file documented as of this encounter Procedures Procedure Name Priority Date/Time Associated Diagnosis Comments SCAN - RADIOLOGY/IMAGING 10/18/2020 documented in this encounter Results * SCAN - RADIOLOGY/IMAGING (10/18/2020) Anatomical Region Laterality Modality Other us Provider Scanning Final Result documented in this encounter Visit Diagnoses Not on filedocumented in this encounter Care Teams Supply Chain Planner Relationship Specialty Start Date End Date Fredy Shah MD PCP - General 09/20/12 05/23/21 Fredy Neff MD [address] [place] [address] PCP - General Emergency Medicine 05/24/21 documented as of this encounter
--- OUTSIDE RECORDS SUMMARY | 2024-12-08 21:25 | XMS_ITS | Continuity of Care Document ---
Author Organization [facility] Address [address] [place] [address] Phone Care Team Providers Care Tonnage Compilation Clerk Name Role Phone Efraín oWodard MD Unavailable Unavailable Advance Directives Directive Yes / No Effective Date File Name No Information Encounters Encounter Description Practice Location Reason(s) For Visit Diagnoses Date Provider Providers Copied on Encounter [email or web address], [address] [facility] [address], [id number], [place] tel:[phone] [email or web address] No Information 6 Vance Kenny. [address] [facility] [facility] [address], [place], [place], [id number] , [place]. tel: [phone] Family History Family Member Type Diagnosis Age At Onset No Information Payers Payer name Insurance type Covered constitution party ID Authoriza tion(s) No Information Social History Type Description Quantity Date Captured Comments Sex Male Smoking Status No Information Chief Complaint And Reason For Visit No Information Reason For Referral Reason For Referral No Information History Of Present Illness Encounter Date Complaint History Of Prese nt Illness No Information Functional Status Date Functional Assessmen t No Information Instructions Date Instruction Additional Infor mation No Information Assessments Type Assessment Date No Information Patient Care Teams Name Effective Dates (start - stop) Status Members No Information
--- OUTSIDE RECORDS SUMMARY | 2024-12-08 21:25 | XMS_ITS | Referral Summary ---
Author Organization [facility] Address [address] [place] [address] Care Team Providers Care Operator Coating Furnace Name Role Phone Fredy Neff MD Primary [...] to discuss mental health with PCP or chief security and safety officer - referral to [facility] FIELD SERVICE ANALYST - follow up with Neurology - continue medications and pacing - follow up with COVID clinic at [facility] Obstructive sleep apnea syndrome 10/11/2017 Hypertension 10/11/2017 Class 2 obesity 10/11/2017 Allergic rhinitis 10/11/2017 Bilateral plantar fasciitis 06/18/2016 Vasectomy evaluation 06/03/2016 Social History Tobacco Use Types Packs/Day Years Used Date Smoking Tobacco: Never Smokeless Tobacco: Never Tobacco Cessation:Counseling Given: Not Answered Alcohol Use Standard Drinks/Week Comments Yes 0 (1 standard drink = 0.6 oz pur e alcohol) Sex and Gender Information Value Date Recorded Sex Assigned at Not on file Legal Sex Male 8:25 PM EMPLOYMENT PROGRAMS ANALYST Gender Identity Not on file Sexual Orientation Not on file Last Filed Vital Signs Vital Sign Reading Time Taken Comments Blood Pressure 107/71 09/05/2022 10:26 AM EMPLOYMENT PROGRAMS ANALYST neck 16 waist 52 Pulse 71 09/05/2022 10:26 AM EMPLOYMENT PROGRAMS ANALYST Temperature 36.8 C (98.2 F) 07/07/2022 8:57 AM EMPLOYMENT PROGRAMS ANALYST Respiratory Rate - - Oxygen Saturation 97% 04/07/2022 3:2 8 PM CDT Inhaled Oxygen Concentration - - Weight 140.6 kg (310 lb) 10/03/2022 9:5 5 AM EMPLOYMENT PROGRAMS ANALYST Height 180.3 cm (5' 10.98 ) 09/05/2022 10:26 AM EMPLOYMENT PROGRAMS ANALYST Body Mass Index 43.26 09/05/2022 10:26 AM EMPLOYMENT PROGRAMS ANALYST Plan of Treatment Not on file Insurance [employer] [facility] Care Teams Operator Coating Furnace Relationship Specialty Start Date End Date Fredy Neff MD [address] [place] [address] PCP - General Emergency Medicine 05/24/21
--- OUTSIDE RECORDS SUMMARY | 2024-12-08 21:25 | XMS_ITS | Continuity of Care Document ---
Author Organization [facility] Address [address] [place] [address] Phone Care Team Providers Care Brooch Maker Novelty Name Role Phone Yesi SMITHRustyi Unavailable Unavailable Procedures Procedure Date PT RE-EVALUATION THERAPEUTIC EXERCISES MANUAL THERAPY FUNC ACTIVITY 15 MIN HOT/COLD PACK ELECTRIC STIMULATION UNATT Theraband, per yard PT EVALUATION THERAPEUTIC EXERCISES MANUAL THERAPY HOT/COLD PACK ELECTRIC STIMULATION UNATT Advance Directives Directive Yes / No Effective Date File Name No Information Encounters Encounter Description Practice Location Reason(s) For Visit Diagnoses Date Provider Providers Copied on Encounter [facility], [address] [place] [address], [id number], tel:[phone] [place] No Information 4 Key Cristin. [address] [facility], [facility] [address], [place], [facility], [place]. tel: [phone] [address], [id number], tel:[phone] [place] No Information 0 4 Key Cristin. [address] [facility], [facility] [address], [place], [facility], [place]. tel: [phone] Referring Provider: Selena Villarreal, [address] [place] [address], [address]. tel:[phone] [facility], [address] [facility] [address], [place], [place], [id number], [place] tel:[phone] Ger CervicalgiaCervi jamshid Strain 4 Yesi Amaral. [address] [facility], [address], [place], [address], [place]. [phone] Referring Provider: Selena Villarreal, [address] [place] [address], [place], [address]. tel:[phone] Family History Family Member Type Diagnosis Age At Onset No Information Payers Payer name Insurance type Covered alliance party ID Authorjamaria sirisha(s) [facility] [place] [id number] Social History Type Description Quantity Date Captured [...]
--- OUTSIDE RECORDS SUMMARY | 2024-12-08 21:25 | XMS_ITS | Clinical Summary ---
Author Organization [facility] Address [address] [place] [address] Care Team Providers Care Portable Sawyer Name Role Phone Fredy Neff MD Primary Care Provider [phone] Source Comments [facility],non-owned Affiliates and Associated Physician Practices is amultiple site organization consisting of ambulatory clinics and hospital sitesin [place], [place], [place] and [place]. This disclosure is being madepursuant to the Care Everywhere program and may not contain all information available regarding this patient. Last updated 18.[facility] Allergies Active Allergy Reactions Criticality Noted Date Comments Ibuprofen Anaphylaxis High 06/03/2016 Medications * This document contains information received from the source organization and may not represent a complete record from that organization. * Be aware that medications may not be up to date on this document. Alwaysverify current medications with the patient. APPLE CIDER VINEGAR PO Active [place]-3 Fatty Acids (OMEGA 3 PO) once daily Active Multiple Vitamins-Mineral s (ONE DAILY MENS 50+ MULTIVIT PO) Active Vitamin D3, cholecalciferol, 50 MCG (2000 UT) tablet Take 1 (one) tablet by mouth once daily Active BLACK CURRANT SEED OIL PO Take 1,000 mg by mouth once daily Active amLODIPine (Norvasc) 10 MG tablet Take 1 (one) tablet by mouth once daily Active hydroCHLOROthiaz jen (Hydrodiuril) 25 MG tablet Take 1 (one) tablet by mouth once daily Active cyclobenzaprine (Flexeril) 5 MG tablet Take 1 (one) tablet by mouth as needed Active rizatriptan (Maxalt) 5 MG tabletIndication s:Intractable migraine with status migrainosus, unspecified migraine type Take 1 tab by mouth once at first sign of migraine. May repeat one time after 2 hours if needed. 9 tablet 11 3 Active Additional Information Patient not taking.Reported on 01/22/2024 hydrOXYzine HCl (Atarax) 10 MG tablet TAKE 1 TABLET BY MOUTH FOUR TIMES A DAY NEEDED FOR ANXIETY/SLEEPIN G 2 Active rimegepant (Nurtec) 75 MG tabletIndication s:Intractable migraine with status migrainosus, unspecified migraine type Take 75 mg by mouth once daily as needed for Migraine 8 tablet 11 3 Active topiramate (Topamax) 25 MG tabletIndication s:BJ (obstructive sleep apnea) Take 1 (one) tablet by mouth 2 times daily Every morning 180 tablet 3 4 Active Additional Information Patient not taking.Reported on 01/22/2024 amitriptyline (Elavil) 25 MG tabletIndication s:Intractable migraine with status migrainosus, unspecified migraine type Take 1 (one) tablet by mouth every evening 90 tablet 3 4 Active gabapentin (Neurontin) 100 MG capsuleIndicatio ns:Intractable migraine with status migrainosus, unspecified migraine type Take 1 (one) capsule by mouth at bedtime 90 capsule 3 4 Active Additional Information Patient not taking.Reported on 01/22/2024 traMADol (Ultram) 50 MG tablet 50 MG ORALLY EVERY 6 HOURS NEEDED FOR PAIN 4 Active ALPRAZolam (Xanax) 0.5 MG tablet 4 Active Active Problems Problem Noted Date Diagnosed Date COVID-19 david rodgers ting chronic concentration deficit 04/14/2022 Overview (01/31/2022): - encouraged sleep study with PCP - reviewed sleep hygiene measures and encouraged meditation - encouraged to discuss mental health with PCP or global manager - referral to [facility] [employer] DIRECT[facility] - follow up with Neurology - continue medications and pacing - follow up with COVID clinic at [facility] BMI 40.0-44.9, adult 04/14/2022 Migraines 04/14/2022 Screening for other and unsp ecified cardiovascular conditions 12/20/2021 Allergic rhinitis 10/11/2017 Hypertension 10/11/2017 Obstructive sleep apnea syndrome 10/11/2017 Bilateral plantar fasciitis 06/18/2016 Immunizations Immunization Administration Dates Next Due Covmark Chris primary monoval ent 12+ yr 0.3mL Purple cap 10/27/2020,10/06/2020 Family History Medical History Relation Name Comments CVA Father 49 DVT - Deep Vein Thrombosis Father 49 Asthma Mother Cancer - Pancreatic Mother Hypertension Mother CAD (Coronary Artery Disease) Paternal Grandmother CAD (Coronary Artery Disease) Paternal Uncle 1 51 Other Paternal Uncle 2 heart and k idney Hypertension Sister Relation Name Status Comments Father 49 Mother Paternal Grandmother Paternal Uncle 1 51 Paternal Uncle 2 Alive Sister Alive Social History Tobacco Use Types Packs/Day Years Used Date Smoking Tobacco: Never Smokeless Tobacco: Never Tobacco Cessation:Counseling Given: Not Answered Alcohol Use Standard Drinks/Week Comments Not Currently 0 (1 standard drink = 0.6 oz pur e alcohol) 2x/mo 2-3 drinks PHQ-2 Answer Date Recorded PHQ2 TOTAL SCORE 2 12/05/2022 Education Answer Date Recorded What is the highest level of school you have completed or the highest degree you have received? 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 Not on file Not on fi le Not on file Last Filed Vital Signs Vital Sign Reading Time Taken Comments Blood Pressure 108/69 01/22/2024 9:34 AM CDT Pulse 66 01/22/2024 9:34 AM CDT Temperature 35.9 C (96.7 F) 08/28/2023 10:05 AM MILL ATTENDANT Respiratory Rate - - Oxygen Saturation 99% 08/28/2023 10:05 AM MILL ATTENDANT Inhaled Oxygen Concentration - - Weight 147 kg (324 lb) 01/22/2024 9:34 AM CDT Height 180.3 cm (5' 11 ) 01/22/2024 9:34 AM CDT Body Mass Index 45.19 01/22/2024 9:34 AM CDT Plan of Treatment Upcoming Encounters Date Type Department Care Team (Late st Contact Info) Description 01/20/2025 11:00 AM CDT Office Visit [facility] [address] [place] [id number] Genie Scott, APNP-RETAIL SALESPERSON [address] [facility] 2L DIV OF PULMONARY/[place] [address] Health Maintenance Due Date Last Done Comments LIPID TESTING 1981 HIV SCREENING 1996 HEPATITIS C SCREENING 04/17/1999 DTAP/TDAP/TD VACCINES (1 - Tdap) 2000 HEPATITIS B VACCINE (1 of 3 - 19+ 3-dose series) 2000 SCREENING FOR DIABETES 04/14/2022 COVID-19 VACCINE (4 - 2023-2 5 season) 2024 07/29/2021, 10/27/2020, 10/06/2020 DEPRESSION SCREENING 08/24/2024 09/25/2022 INFLUENZA VACCINE (Season Ended) 2025 ZOSTER VACCINE (1 of 2) 2031 HIB VACCINE Aged Out No longer eligi ble based on patient's age to complete this topic HPV VACCINE Aged Out No longer eligi ble based on patient's age to complete this topic MENINGOCOCCAL (Group B) VACCINE SHARED DECISION-MAKING Aged Out No longer eligible based on patient's age to complete this topic MENINGOCOCCAL GROUPS A/C/Y/W VACCINE Aged Out No longer eligible b ased on patient's age to complete this topic PNEUMOCOCCAL VACCINE Aged Out No long er eligible based on patient's age to complete this topic Insurance AETNA AETNA Care Teams Portable Sawyer Relationship Specialty Start Date End Date Fredy Neff MD [address] [place], [place] [id number] PCP - General 11/20/21
--- OUTSIDE RECORDS SUMMARY | 2024-12-08 21:25 | XMS_ITS | CONTINUITY OF CARE DOCUMENT ---
Author Name dane vela Address Unknown Organization [facility] Address [address] [place] [address] [address] [place] [address] Phone [phone] Care Team Providers Care Sewer And Cutter Finger Buff Material Name Role Phone Dimitry Rebolledo MD Unavailable HAROLDO ARENAS MD Unavailable [phone] HAROLDO ARENAS MD Unavailable [phone] PROBLEMS Condition Status Date Provider Notes Cardiovascular screening active Urvashi azul TREATMENT PLAN Date Name CT, Coronary Calcium Score HISTORY OF PROCEDURES Procedure Date Procedure Name Provider Procedure Notes S tatus CT- Coronary CA score Dimitry Rebolledo MD completed
--- OUTSIDE RECORDS SUMMARY | 2024-12-08 21:25 | XMS_ITS | Clinical Summary ---
Author Organization Omar Doherty [facility] Address [address] [place] [address] Phone Care Team Providers Care Elevator Constructor Helper Name Role Phone Omar Odonnell MD Primary Care Provider [phone] Allergies Active Allergy Reactions Criticality Noted Date Comments Ibuprofen Hives High 06/03/2016 Medications meloxicam (MOBIC) 15 mg tablet Take 1 Tablet (15 mg) by mouth daily. 30 Tablet 2 10/01/2017 Active predniSONE (DELTASONE) 5 mg tablet PO pc qd: Day 1/2: 7 tab; Day 3/4: 6 tab; Day 5/6: 5 tab; Day 7/8: 4 tab; Day 9/10: 3 tab; Day 11/12: 2 tab; Day 13/14: 1 tab. 56 Tablet 10/01/2017 Active ketorolac tromethamine (KETOROLAC ORAL) Take by mouth. Active Active Problems Problem Noted Date Diagnosed Date Allergic rhinitis 10/11/2017 Hypertension 10/11/2017 Class 2 obesity 10/11/2017 Obstructive sleep apnea syndrome 10/11/2017 Bilateral plantar fasciitis 06/18/2016 Vasectomy evaluation 06/03/2016 Social History Tobacco Use Types Packs/Day Years Used Date Smoking Tobacco: Never Smokeless Tobacco: Never Alcohol Use Standard Drinks/Week Comments Yes 0 (1 standard drink = 0.6 oz pur e alcohol) Sex and Gender Information Value Date Recorded Sex Assigned at Not on file Legal Sex Male 4:54 AM ART DIRECTOR Gender Identity Not on file Sexual Orientation Not on file Last Filed Vital Signs Vital Sign Reading Time Taken Comments Blood Pressure 130/70 01/07/2018 8:10 AM CDT Pulse 77 12/21/2017 2:29 PM CDT Temperature - - Respiratory Rate 12 01/08/2017 1:26 PM CDT Oxygen Saturation 95% 01/08/2017 1:26 PM CDT RA Inhaled Oxygen Concentration - - Weight 122.5 kg (270 lb) 01/07/2018 8:10 AM CDT Height 180.3 cm (5' 11 ) 01/07/2018 8:10 AM CDT Body Mass Index 37.66 01/07/2018 8:10 AM CDT Plan of Treatment Health Maintenance Due Date Last Done Comments DTAP/TDAP/TD VACCINES (1 - Tdap) 2000 HEPATITIS B VACCINES (1 of 3 - 19+ 3-dose series) 2000 INFLUENZA VACCINE (#1) 2024 HPV VACCINES Aged Out No longer eligi ble based on patient's age to complete this topic PNEUMOCOCCAL VACCINE 0-49 YEARS Aged Out No longer eligible based on patient's age to complete this topic Care Teams Elevator Constructor Helper Relationship Specialty Start Date End Date Omar Odonnell MD PCP - General Family Practice 06/03/16
[2024-12-08 21:26] VITALS: BP 165/95; PULSE 70; RESP 17; TEMP 36.1; O2SAT 100
--- NOTE | 2024-12-08 21:33 | ECG_ITS ---
Test Date: 2024-12-08 21:39:46 Measurements Intervals [place] Rate: 73 P: 51 AL: 162 QRS: 34 QRSD: 110 T: -5 QT: 372 QTc: 411 Interpretive Statements SINUS RHYTHM INCOMPLETE RIGHT BUNDLE BRANCH BLOCK BORDERLINE ST-T WAVE ABNORMALITY- DIFFUSE LEADS BORDERLINE ECG No previous ECG available for comparison Electronically Signed On 12-09-2024 06:12:59 CDT by Tommie Dubose D.O.
[2024-12-08 21:46] LABS: Basophils Percent Auto 0.4 % (0.2-1.2); Eosinophils Absolute Auto 0.1 K/mm3 (0-0.3); Eosinophils Percent Auto 0.9 % (0-4.4); Hematocrit 42.9 % (42.0-52.0); Hemoglobin 14.5 g/dL (14.0-18.0); Immature Granulocyte Absolute 0.01 K/mm3 (0.00-0.031); Immature Granulocyte Percent A 0.2 % (0-0.5); Lymphocytes Absolute Auto 2.69 K/mm3 (0.9-3.2); Lymphocytes Percent Auto 48.8 % (18.3-44.2); Mean Corpuscular HGB Conc 33.8 g/dl (32-36); Mean Corpuscular Hemoglobin 30.1 pg (26-34); Mean Platelet Volume 11.2 fl (7.4-10.4); Monocytes Absolute Auto 0.3 K/mm3 (0.1-0.6); Monocytes Percent Auto 5.4 % (2.6-8.5); Neutrophils Absolute Auto 2.4 K/mm3 (1.3-6.7); Neutrophils Percent Auto 44.3 % (45.5-73.1); Platelet Count Result 218 k/mm3 (150-375); Red Blood Count 4.82 M/mm3 (4.6-6.20); Red Cell Distribution Width 13.6 % (11.5-14.5); White Blood Count 5.5 K/mm3 (4.5-10.0)
[2024-12-08 22:02] LABS: Alanine Aminotransferase 37 U/L (6-50); Albumin Level 4.6 g/dL (3.5-5.1); Alkaline Phosphatase 82 U/L (38-126); Anion Gap 10 mmol/L (4-12); Aspartate Amino Transferase 30 U/L (17-59); Bilirubin,Total 0.7 mg/dL (0.2-1.3); Blood Urea Nitrogen 14 mg/dL (9-20); Calcium 9.1 mg/dL (8.4-10.2); Carbon Dioxide 29 mmol/L (22-30); Chloride 99 mmol/L (98-107); Estimated CRCL calculation 125 ml/min; Estimated Glomerular Filt Rate > 60; Glucose 98 mg/dL (65-110); Potassium 2.7 mmol/L (3.4-5.0); Sodium 138 mmol/L (137-145)
--- OUTSIDE RECORDS SUMMARY | 2024-12-08 22:57 | XMS_ITS | Encounter Summary ---
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
--- OUTSIDE RECORDS SUMMARY | 2024-12-08 22:57 | XMS_ITS | Clinical Summary ---
Author Organization [facility] Address [address] [place] [address] Care Team Providers Care Property Maintenance Technician Name Role Phone Unavailable Primary Care Provider Unavailabl e Immunizations Immunization Administration Dates Next Due Covid-19, Mrna, Lnp-s, Pf, 30 Mcg/0.3 Ml Dose (P fizer) 07/29/2021 Social History Tobacco Use Types Packs/Day Years Used Date Smoking Tobacco: Never Assessed Sex and Gender Information Value Date Recorded Sex Assigned at Not on file Legal Sex Male 11:11 AM FUEL TESTING TECHNICIAN Gender Identity Not on file Sexual Orientation [...]
--- OUTSIDE RECORDS SUMMARY | 2024-12-08 22:57 | XMS_ITS | Encounter Summary ---
Author Organization 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
--- OUTSIDE RECORDS SUMMARY | 2024-12-08 22:57 | XMS_ITS | CONTINUITY OF CARE DOCUMENT ---
Author Name dane vela Address Unknown Organization [facility] Address [address] [place] [address] [address] [place] [address] Phone [phone] Care Team Providers Care Undercoat Sprayer Name Role Phone Dimitry Rebolledo MD Unavailable [phone] HAROLDO ARENAS MD Unavailable HAROLDO ARENAS MD Unavailable PROBLEMS Condition Status Date Provider Notes Cardiovascular screening active Urvashi azul TREATMENT PLAN Date Name CT, Coronary Calcium Score HISTORY OF PROCEDURES Procedure Date Procedure Name Provider Procedure Notes S tatus CT- Coronary CA score Dimitry Rebolledo MD completed
--- OUTSIDE RECORDS SUMMARY | 2024-12-08 22:57 | XMS_ITS | Encounter Summary ---
Author Organization [employer] Address [address] [place] [address] Care Team Providers Care Manager Air Name Role Phone Omar Odonnell MD Primary Care Provider [phone] Encounter Details Date Type Department Care Team (Late st Contact Info) Description 03/10/2004 Outpatient Historical [facility] Nic Brown [place] [facility] [place] [address] Er, Authorized P NO ADDRESS ON FILE SPRAIN OF ANKLE NOS (Primary Dx) Social History Tobacco Use Types Packs/Day Years Used Date Smoking Tobacco: Never Assessed Sex and Gender Information Value Date Recorded Sex Assigned at Not on file Legal Sex Male 4:54 AM BPM ANALYST Gender Identity Not on file Sexual Orientation Not on file documented as of this encounter Plan of Treatment Not on file documented as of this encounter Visit Diagnoses Diagnosis Sprain of ankle, unspecified site- Primary documented in this encounter Care Teams Manager Air Relationship Specialty Start Date End Date Omar Odonnell MD PCP - General Family Practice 06/03/16 documented as of this encounter
--- OUTSIDE RECORDS SUMMARY | 2024-12-08 22:58 | XMS_ITS | Referral Summary ---
Author Organization [facility] Address [address] [place] [address] Care Team Providers Care Art Gallery Internship Name Role Phone Fredy Neff MD Primary [...] to discuss mental health with PCP or display and banner designer - referral to [facility] - follow up with Neurology - continue medications and pacing - follow up with COVID clinic at [facility] Obstructive sleep apnea syndrome 10/11/2017 Hypertension 10/11/2017 [...] on file Legal Sex Male 8:25 PM NUCLEAR PHYSICIAN Gender Identity Not on file Sexual Orientation Not on file Last Filed Vital Signs Vital Sign Reading Time Taken Comments Blood Pressure 107/71 09/05/2022 10:26 AM NUCLEAR PHYSICIAN neck 16 waist 52 Pulse 71 09/05/2022 10:26 AM NUCLEAR PHYSICIAN Temperature 36.8 C (98.2 F) 07/07/2022 8:57 AM NUCLEAR PHYSICIAN Respiratory Rate - - Oxygen Saturation 97% 04/07/2022 3:2 8 PM CDT Inhaled Oxygen Concentration - - Weight 140.6 kg (310 lb) 10/03/2022 9:5 5 AM NUCLEAR PHYSICIAN Height 180.3 cm (5' 10.98 ) 09/05/2022 10:26 AM NUCLEAR PHYSICIAN Body Mass Index 43.26 09/05/2022 10:26 AM NUCLEAR PHYSICIAN Plan of Treatment Not on file Insurance AETNA [facility] Care Teams Art Gallery Internship Relationship Specialty Start Date End Date Fredy Neff MD [address] [place] [address] PCP - General Emergency Medicine 05/24/21
--- OUTSIDE RECORDS SUMMARY | 2024-12-08 22:58 | XMS_ITS | Clinical Summary ---
Author Organization [facility] Address [address] [place] [address] Care Team Providers Care Carpenter Foreman Name Role Phone Fredy Neff MD Primary Care Provider [phone] Source Comments [facility],non-owned Affiliates and Associated Physician Practices is amultiple site organization consisting of ambulatory clinics and hospital sitesin [place], [place], [place] and [place]. This disclosure is being madepursuant to the Care Everywhere program and may not contain all information available regarding this patient. Last updated 18.[facility] Allergies Active Allergy Reactions Criticality Noted Date Comments Ibuprofen Anaphylaxis High 06/03/2016 Medications * This document contains information received from the source organization and may not represent a complete record from that organization. * Be aware that medications may not be up to date on this document. Alwaysverify current medications with the patient. 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 Not on fi le Not on file Last Filed Vital Signs Vital Sign Reading Time Taken Comments Blood Pressure 108/69 01/22/2024 9:34 AM CDT Pulse 66 01/22/2024 9:34 AM CDT Temperature 35.9 C (96.7 F) 08/28/2023 10:05 AM PASSPORT SUPPORT ASSOCIATE Respiratory Rate - - Oxygen Saturation 99% 08/28/2023 10:05 AM PASSPORT SUPPORT ASSOCIATE Inhaled Oxygen Concentration - - Weight 147 kg (324 lb) 01/22/2024 9:34 AM CDT Height 180.3 cm (5' 11 ) 01/22/2024 9:34 AM CDT Body Mass Index 45.19 01/22/2024 9:34 AM CDT Plan of Treatment Upcoming Encounters Date Type Department Care Team (Late st Contact Info) Description 01/20/2025 11:00 AM CDT Office Visit [facility] [address] [place] [phone] Genie Scott, APNP-FENDER MECHANIC APPRENTICE [address] [facility] 2[address] DIV OF PULMONARY/[place] [address] Health Maintenance Due Date Last Done Comments [...] this topic Insurance AETNA AETNA Care Teams Carpenter Foreman Relationship Specialty Start Date End Date Fredy Neff MD [address] [place], [place] [id number] PCP - General 11/20/21
--- OUTSIDE RECORDS SUMMARY | 2024-12-08 22:58 | XMS_ITS | Encounter Summary ---
Author Organization 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
--- OUTSIDE RECORDS SUMMARY | 2024-12-08 22:58 | XMS_ITS | Continuity of Care Document ---
Author Organization [facility] Address [address] [place] [address] Phone Care Team Providers Care Emissions Testing And Repair Technician Name Role Phone Efraín Woodard MD Unavailable Unavailable Advance Directives Directive Yes / No Effective Date File Name No Information Encounters Encounter Description Practice Location Reason(s) For Visit Diagnoses Date Provider Providers Copied on Encounter [facility], [address], [id number], [place] tel:[phone] [facility] No Information 6 Vance Kenny. [address] [facility], [facility] [address], [place], [place], [id number] , [place]. tel: [phone] Family History Family Member Type Diagnosis Age At Onset No Information Payers Payer name Insurance type Covered green party ID Authoriza tion(s) No Information Social [...]
--- OUTSIDE RECORDS SUMMARY | 2024-12-08 22:58 | XMS_ITS | Encounter Summary ---
Author Organization [facility] Address [address] [place] [address] Phone Care Team Providers Care Manager Biostatistics Name Role Phone Fredy Shah MD Primary Care Provider [phone] Fredy Neff MD Primary Care Provide r [...] on file Legal Sex Male 8:25 PM CLEANING SPECIALIST Gender Identity Not on file Sexual Orientation [...] on filedocumented in this encounter Care Teams Manager Biostatistics Relationship Specialty Start Date End Date Fredy Shah MD PCP - General 09/20/12 05/23/21 Fredy Neff MD [address] [place] [address] PCP - General Emergency Medicine 05/24/21 documented as of this encounter
--- OUTSIDE RECORDS SUMMARY | 2024-12-08 22:58 | XMS_ITS | Clinical Summary ---
Author Organization Omar Doherty [facility] Address [address] [place] [address] Phone Care Team Providers Care Credit Risk Manager Name Role Phone Omar Odonnell MD Primary Care Provider [phone] Allergies Active Allergy Reactions Criticality Noted Date [...] on file Legal Sex Male 4:54 AM FARMWORKER VEGETABLE Gender Identity Not on file Sexual Orientation [...] age to complete this topic Care Teams Credit Risk Manager Relationship Specialty Start Date End Date Omar Odonnell MD PCP - General Family Practice 06/03/16
--- OUTSIDE RECORDS SUMMARY | 2024-12-08 22:58 | XMS_ITS | Continuity of Care Document ---
Author Organization [facility] Address [address] [facility] [address] [place] [address] Phone Care Team Providers Care Brim Edge Trimmer Name Role Phone Yesi SMITHRustyi Unavailable Unavailable [...] Diagnoses Date Provider Providers Copied on Encounter [facility], [address] [place] [address], [id number], tel:[phone] [place] No Information 4 Key Cristin. [address] [facility], [facility] [address], [place], [facility], [place]. tel: [phone] [address], [id number], tel:[phone] [place] No Information 0 4 Key Cristin. [address] [facility], [facility] [address], [place], [facility], [place]. tel: [phone] Referring Provider: Selena Villarreal, [address] [place] [address], [address]. tel:[phone] [employer] [place], [address] [facility] [address], [place], [place], [id number], [place] tel:[phone] Ger CervicalgiaCervi jamshid Strain 4 Yesi Amaral. [address] [facility], [address], [place], [address], [place]. [phone] Referring Provider: Selena Villarreal, [address] [place] [address], [place], [address]. tel:[phone] Family History Family Member Type Diagnosis Age At Onset No Information Payers Payer name Insurance type Covered alliance party ID Authorjamaria sirisha(s) [employer] [facility] [employer] CI [id number] Social History Type Description Quantity Date Captured [...]
--- OUTSIDE RECORDS SUMMARY | 2024-12-08 22:58 | XMS_ITS | Clinical Summary ---
Author Organization [facility] Address [address] [place] [address] Care Team Providers Care Salvage Supervisor Name Role Phone Fredy Neff MD Primary [...] to discuss mental health with PCP or mine environmental engineer - referral to [facility] SOLAR PROJECT COORDINATION SPECIALIST - follow up with Neurology - continue medications and pacing - follow up with COVID clinic at [facility] Obstructive sleep apnea syndrome 10/11/2017 Hypertension [...] on file Legal Sex Male 8:25 PM DATA SUPPORT SPECIALIST Gender Identity Not on file Sexual Orientation Not on file Obstetrics History Last Filed Vital Signs Vital Sign Reading Time Taken Comments Blood Pressure 107/71 09/05/2022 10:26 AM DATA SUPPORT SPECIALIST neck 16 waist 52 Pulse 71 09/05/2022 10:26 AM DATA SUPPORT SPECIALIST Temperature 36.8 C (98.2 F) 07/07/2022 8:57 AM DATA SUPPORT SPECIALIST Respiratory Rate - - Oxygen Saturation 97% 04/07/2022 3:2 8 PM CDT Inhaled Oxygen Concentration - - Weight 140.6 kg (310 lb) 10/03/2022 9:5 5 AM DATA SUPPORT SPECIALIST Height 180.3 cm (5' 10.98 ) 09/05/2022 10:26 AM DATA SUPPORT SPECIALIST Body Mass Index 43.26 09/05/2022 10:26 AM DATA SUPPORT SPECIALIST Plan of Treatment Health Maintenance Due Date [...] patient's age to complete this topic Insurance [facility] Care Teams Salvage Supervisor Relationship Specialty Start Date End Date Fredy Neff MD [address] [place] [address] PCP - General Emergency Medicine 05/24/21
[2024-12-08 22:59] LABS: Magnesium 2.1 mg/dL (1.6-2.3)
[2024-12-08] MEDS: POTASSIUM CHLORIDE 20 MEQ ER TABLET 40 MEQ PO (22:59)
[2024-12-08] MEDS: POTASSIUM CHLORIDE 20 MEQ PACKET (FOR LIQUID) 40 MEQ PO (22:59)
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
[2024-12-08 23:21] VITALS: O2SAT 96
[2024-12-09 00:11] VITALS: BP 124/67; PULSE 66; RESP 14; O2SAT 94
[2024-12-09 00:12] VITALS: PULSE 66
[2024-12-09 01:04] LABS: Anion Gap 7 mmol/L (4-12); Blood Urea Nitrogen 15 mg/dL (9-20); Calcium 8.9 mg/dL (8.4-10.2); Carbon Dioxide 30 mmol/L (22-30); Chloride 100 mmol/L (98-107); Estimated CRCL calculation 131 ml/min; Estimated Glomerular Filt Rate > 60; Glucose 100 mg/dL (65-110); Potassium 3.4 mmol/L (3.4-5.0); Sodium 137 mmol/L (137-145)
== END 2024-12-09 01:30 | disposition home or self-care (01) ==
PROVIDERS: Emergency Provider Emergency Medicine; PCP Emergency Medicine
DX: E87.6 Hypokalemia (principal); I10 Essential (primary) hypertension; E66.9 Obesity, unspecified; Z68.42 Body mass index [BMI] 45.0-49.9, adult
CPT/HCPCS: 36415; 71046; 80048; 80053; 83735; 85025; 93005; 99284; A9270

== ENCOUNTER 2025-04-09 15:50 | Emergency (ER) | payer OTHER, SELFPAY ==
--- NOTE | ~2025-04-09 | XR_ITS ---
HISTORY: NONTRAUMATIC PAIN COMPARISON: 12/30/2023 TECHNIQUE: 2 views of the left shoulder were performed FINDINGS: No acute fracture. The glenohumeral and acromioclavicular joint space is maintained The visualized portion of the adjacent left lung is clear. The humeral head is well seated within the glenoid fossa. IMPRESSION: No acute fracture or anterior dislocation. Reviewed, dictated and finalized at location A.
--- NOTE | ~2025-04-09 | XR_ITS ---
CHEST RADIOGRAPH CLINICAL HISTORY: L chest pain . COMPARISON: 12/08/2024 TECHNIQUE: Single portable view of the chest. FINDINGS The cardiomediastinal silhouette is unremarkable. The lungs are clear. IMPRESSION: No focal infiltrate or effusion. Reviewed, dictated and finalized at location A.
[2025-04-09 15:50] VITALS: BP 132/85; PULSE 64; RESP 16; TEMP 36.8; O2SAT 99
--- OUTSIDE RECORDS SUMMARY | 2025-04-09 15:51 | XMS_ITS | Clinical Summary ---
Author Organization 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
--- OUTSIDE RECORDS SUMMARY | 2025-04-09 15:52 | XMS_ITS | Patient Health Record ---
Author Organization [facility] Address [address] [place], [place] [id number] Care Team Providers Care Iron Carrier Name Role Phone Fredy Neff Unavailable Unavailable Allergies Allergen (clinical drug ingredient) Drug/Non Drug Allergy documented on EMR Reaction Allergy Type Onset Date Status ibuprofen Ibuprofen Unknown Drug Allergy Active Reason For Referral No Information Medications Medication SIG (Take, Route, Frequency, Duration) Notes Start Date End Date Status Sertraline HCl 50 MG Oral; Duration: 90 Days Active Gabapentin 100 MG TAKE 1 CAPSULE BY MO UTH EVERYDAY AT BEDTIME Oral; Duration: 90 Days Active Rizatriptan Benzoate 5 MG TAKE 1 TAB BY MOUTH ONCE AT FIRST SIGN OF MIGRAINE. MAY REPEAT ONE TIME AFTER 2 HOURS IF NEEDED. Oral; Duration: 30 Days Active hydroCHLOROthiazide 25 MG Oral; Duration: 90 Days Active amLODIPine Besylate 10 MG Oral; Duration: 90 Days Active Plan Of Treatment No Information Insurance Providers Payer Name Payer Address Payer Phone Subscriber Number Group Number Insured Name Patient Relationship to Insured Coverage Start Date Coverage End Date [employer] [address] [place] [address] [id number] DANIA GLASGOW Self - patient is the insured Medical (General) History Medical History History ICD Code Blood clots hypertension Surgical History Surgery Date(Month/Year) Rt knee scope
--- OUTSIDE RECORDS SUMMARY | 2025-04-09 15:52 | XMS_ITS | Continuity of Care Document ---
Author Organization [facility] Address [address] [facility] [address] [place] [address] Phone Care Team Providers Care Director Of Physician Practices Name Role Phone Yesi SMITHRustyi Unavailable Unavailable [...] Diagnoses Date Provider Providers Copied on Encounter [facility], [address] [place] [address], [id number], tel:[phone] [place] No Information 4 Key Cristin. [address] [facility], [facility] [address], [place], [facility], [place]. tel: [phone] [address], [id number], tel:[phone] [place] No Information 0 4 Key Cristin. [address] [facility], [facility] [address], [place], [facility], [place]. tel: [phone] Referring Provider: Selena Villarreal, [address] [place] [address], [address]. tel:[phone] [employer] [place], [address] [facility] [address], [place], [place], [id number], [place] tel:[phone] Ger CervicalgiaCervi jamshid Strain 4 Yesi Amaral. [address] [facility], [address], [place], [address], [place]. [phone] Referring Provider: Selena Villarreal, [address] [place] [address], [place], [address]. tel:[phone] Family History Family Member Type Diagnosis Age At Onset No Information Payers Payer name Insurance type Covered libertarian ID Authorjamaria sirisha(s) [facility] [employer] CI [id number] Social History Type Description Quantity Date Captured [...]
--- OUTSIDE RECORDS SUMMARY | 2025-04-09 15:52 | XMS_ITS | Encounter Summary ---
Author Organization [employer] [facility] Address 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
--- OUTSIDE RECORDS SUMMARY | 2025-04-09 15:52 | XMS_ITS | Encounter Summary ---
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
--- OUTSIDE RECORDS SUMMARY | 2025-04-09 15:52 | XMS_ITS | Continuity of Care Document ---
Author Organization [facility] Address [address] [place] [address] Phone Care Team Providers Care Hypercil Core Transformer Assembler Name Role Phone Vance HERRMANN MD, Efraín Unavailable Unavailable Advance Directives Directive Yes / No Effective Date File Name No Information Encounters Encounter Description Practice Location Reason(s) For Visit Diagnoses Date Provider Providers Copied on Encounter [facility], [address] [facility] [address], [id number], tel:[phone] [facility] No Information 6 Vance Kenny. [address] [facility], [facility] [address], [place], [place], [id number] , [place]. tel: [phone] Family History Family Member Type Diagnosis Age At Onset No Information Payers Payer name Insurance type Covered libertarian ID Authoriza tion(s) No Information Social History [...]
--- OUTSIDE RECORDS SUMMARY | 2025-04-09 15:52 | XMS_ITS | Encounter Summary ---
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
--- OUTSIDE RECORDS SUMMARY | 2025-04-09 15:52 | XMS_ITS | Clinical Summary ---
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 Gender Identity Not on file Sexual Orientation Not on file Obstetrics History Last Filed Vital Signs Vital Sign Reading Time Taken Comments Blood Pressure 107/71 09/05/2022 10:26 AM BABYSITTER neck 16 waist 52 Pulse 71 09/05/2022 10:26 AM BABYSITTER Temperature 36.8 C (98.2 F) 07/07/2022 8:57 AM BABYSITTER Respiratory Rate - - Oxygen Saturation 97% 04/07/2022 3:2 8 PM CDT Inhaled Oxygen Concentration - - Weight 140.6 kg (310 lb) 10/03/2022 9:5 5 AM BABYSITTER Height 180.3 cm (5' 10.98) 09/05/2022 10:26 AM BABYSITTER Body Mass Index 43.26 09/05/2022 10:26 AM BABYSITTER Plan of Treatment Health Maintenance Due Date Last Done Comments Depression Screening 1981 Hepatitis C Screening 1981 Prostate Cancer Screening-PSA 1981 DTaP/Tdap/Td Vaccine (1 - Tdap) 1992 Varicella Vaccines (1 of 2 - 13+ 2-dose series) 1994 Hepatitis B Screening 1999 Regular Well Visit/Exam 18-64 1999 HPV Vaccines (1 - 3-dose SCD M series) 2008 Covid-19 Vaccine (4 - 2023-2 5 season) 2024 07/29/2021, 10/27/2020, 10/06/2020 Influenza Vaccine (#1) 2025 Pneumococcal vaccine <65 Aged Out No longer eligible based on patient's age to complete this topic Insurance [facility] H[facility]/PPO Address: [facility] [id number] [place] [address] Care Teams Hardwood Floor Layer Relationship Specialty Start Date End Date Fredy Neff MD [address] [place] [address] PCP - General Emergency Medicine 05/24/21
--- OUTSIDE RECORDS SUMMARY | 2025-04-09 15:52 | XMS_ITS | Clinical Summary ---
Author Organization Omar Doherty [facility] Address [address] [place] 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
--- OUTSIDE RECORDS SUMMARY | 2025-04-09 15:52 | XMS_ITS | Clinical Summary ---
Author Organization [facility] Address [address] [place] [address] Care Team Providers Care Instructor Kindergarten Name Role Phone Fredy Neff MD Primary Care Provider + [phone] Source Comments [facility],non-owned Affiliates and Associated Physician Practices is amultiple site organization consisting of ambulatory clinics and hospital sitesin [place], [place], [place] and [place]. This disclosure is being madepursuant to the Care Everywhere program and may not contain all information available regarding this patient. Last updated 18.[facility] Allergies Active Allergy Reactions Criticality Noted Date Comments Ibuprofen Anaphylaxis High 06/03/2016 Medications * This document contains information received from the source organization and may not represent a complete record from that organization. * Be aware that medications may not be up to date on this document. Alwaysverify current medications with the patient. APPLE CIDER VINEGAR PO Active [place]-3 Fatty Acids (OMEGA 3 PO) once daily [...] (one) tablet by mouth once daily Active rimegepant (Nurtec) 75 MG tabletIndication s:Intractable migraine with status migrainosus, unspecified migraine type Take 75 mg by mouth once daily as needed for Migraine 8 tablet 11 3 Active amitriptyline (Elavil) 25 MG tabletIndication s:Intractable migraine with status migrainosus, unspecified migraine type Take 1 (one) tablet by mouth every evening 90 tablet 3 4 Active gabapentin (Neurontin) 100 MG capsuleIndicatio ns:Intractable migraine with status migrainosus, unspecified migraine type Take 1 (one) capsule by mouth at bedtime 90 capsule 3 4 Active Additional Information Patient not taking.Reason: Other, Reported on 01/20/2025 Active Problems Problem Noted Date Diagnosed Date Sleep related hypoxia 01/20/2025 05/01/2022 COVID-19 long hauler ana maria barrett chronic concentration deficit 04/14/2022 Overview (01/31/2022): - encouraged sleep study with PCP - reviewed sleep hygiene measures and encouraged meditation - encouraged to discuss mental health with PCP or lead ramp agent - referral to [facility] - follow up with Neurology - continue medications and pacing - follow up with COVID clinic at [facility] BMI 40.0-44.9, adult 04/14/2022 Migraines 04/14/2022 Allergic rhinitis 10/11/2017 Hypertension 10/11/2017 BJ (obstructive sleep apnea) with hypoxia 10/1105/01/2022 Overview (01/20/2025): HOME SLEEP APNEA TEST INTERPRETATION (05/01/2022) DIAGNOSTIC STUDY During this diagnostic study, the patient was monitored for 376.5 minutes. The patient's overall respiratory event index (NASRIN) was increased at 89.4 per hour. The patient slept entirely in the supine position during this diagnostic study. The minimum oxygen saturation was decreased at 75%. The time spent with oxygen saturation less than 90% was 154.5 min. IMPRESSION: 1. Severe obstructive sleep apnea 2. Sleep-related hypoxemia; cannot rule out sleep-related hypoventilation as cause of hypoxemia since capnography was not performed. Bilateral plantar fasciitis 06/18/2016 Encounters Date Type Department Care Team Description 01/20/2025 11:00 AM CDT Office Visit [facility] - [facility] Services [address] [place] [address] Genie Scott, APNP-STRUCTURAL STEEL WORKER HELPER BJ (obstructive sleep apnea) with hypoxia (Primary Dx); Sleep related hypoxia; Morbid obesity with BMI of 45.0-49.9, adult (HCC); Excessive daytime sleepiness; Chronic fatigue; CPAP use counseling; Migraine without status migrainosus, not intractable, unspecified migraine type; Primary hypertension 01/20/2025 Travel from Last 3 Months Immunizations Immunization Administration Dates Next Due Covid Pfizer primary monoval ent 12+ yr 0.3mL Purple [...] 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 on file Not on fi le Not on file Last Filed Vital Signs Vital Sign Reading Time Taken Comments Blood Pressure 124/81 01/20/2025 10:59 AM CDT Pulse 70 01/20/2025 10:59 AM CDT Temperature 35.9 C (96.7 F) 08/28/2023 10:05 AM PAPER CONE MAKER Respiratory Rate - - Oxygen Saturation 99% 08/28/2023 10:05 AM PAPER CONE MAKER Inhaled Oxygen Concentration - - Weight 149.2 kg (329 lb) 01/20/2025 10:59 AM CDT Height 181.6 cm (5' 11.5) 01/20/2025 10:59 AM C DT Body Mass Index 45.25 01/20/2025 10:59 AM CDT Plan of Treatment Upcoming Encounters Date Type Department Care Team (Late st Contact Info) Description 01/19/2026 9:40 AM CDT Office Visit [facility] - [facility] Services [address] [place] [address] Genie Scott APNP-STRUCTURAL STEEL WORKER HELPER [address] [place] [address] Health Maintenance Due Date Last Done Comments LIPID TESTING 1981 HIV SCREENING 1996 HEPATITIS C SCREENING 04/17/1999 DTAP/TDAP/TD VACCINES (1 - Tdap) 2000 HEPATITIS B VACCINE (1 of 3 - 19+ 3-dose series) 2000 HPV VACCINE (1 - 3-dose SCDM series) 2008 COVID-19 VACCINE (4 - 2023-2 5 season) 2024 07/29/2021, 10/27/2020, 10/06/2020 DEPRESSION SCREENING 08/24/2024 09/25/2022 INFLUENZA VACCINE (#1) 2025 SCREENING FOR DIABETES 09/26/2025 09/26/2022 ZOSTER VACCINE (1 of 2) 2031 HIB [...] this topic Insurance AETNA AETNA Care Teams Instructor Kindergarten Relationship Specialty Start Date End Date Fredy Neff MD [address] [place] [address] [address] [place] [address] PCP - General 11/20/21
--- OUTSIDE RECORDS SUMMARY | 2025-04-09 15:52 | XMS_ITS | Encounter Summary ---
Author Organization [facility] Address [address] [place] [address] Phone Care Team Providers Care Timber Bucker Name Role Phone Fredy Shah MD Primary Care Provider [phone] Fredy Neff MD Primary Care Provide r [...] on file Legal Sex Male 8:25 PM DISMANTLER Gender Identity Not on file Sexual Orientation [...] on filedocumented in this encounter Care Teams Timber Bucker Relationship Specialty Start Date End Date Fredy Shah MD PCP - General 09/20/12 05/23/21 Fredy Neff MD [address] [place] [address] PCP - General Emergency Medicine 05/24/21 documented as of this encounter
--- OUTSIDE RECORDS SUMMARY | 2025-04-09 15:52 | XMS_ITS | Encounter Summary ---
Author Organization [facility] Address [address] [place] [address] Phone Care Team Providers Care Food Vendor Name Role Phone Fredy Shah MD Primary Care Provider [phone] Fredy Neff MD Primary Care Provide r [...] on file Legal Sex Male 8:25 PM FREIGHT FORWARDER Gender Identity Not on file Sexual Orientation [...] on filedocumented in this encounter Care Teams Food Vendor Relationship Specialty Start Date End Date Fredy Shah MD PCP - General 09/20/12 05/23/21 Fredy Neff MD [address] [place] [address] PCP - General Emergency Medicine 05/24/21 documented as of this encounter
--- NOTE | 2025-04-09 16:12 | ECG_ITS ---
Test Date: 2025-04-09 16:34:28 Measurements Intervals [place] Rate: 63 P: 28 FL: 161 QRS: 18 QRSD: 98 T: -23 QT: 386 QTc: 398 Interpretive Statements SINUS RHYTHM INCOMPLETE RIGHT BUNDLE BRANCH BLOCK BORDERLINE ST-T WAVE ABNORMALITY- ANT/INF LEADS BASELINE ARTIFACT- I, II, III, AVR, AVL, AVF, V1-V3 BORDERLINE ECG Compared to ECG 12/08/2024 21:39:46 NO SIGNIFICANT CHANGE Electronically Signed On 04-09-2025 20:23:45 CDT by Tommie Dubose D.O.
--- OUTSIDE RECORDS SUMMARY | 2025-04-09 16:52 | XMS_ITS | Clinical Summary ---
Author Organization [facility] Address [address] [place] [address] Care Team Providers Care Aviation Technical Systems Specialist Name Role Phone Unavailable Primary Care Provider Unavailabl e Immunizations Immunization Administration Dates Next Due Covid-19, Mrna, Lnp-s, Pf, 30 Mcg/0.3 Ml Dose (P fizer) 07/29/2021 Social History Tobacco Use Types Packs/Day Years Used Date Smoking Tobacco: Never Assessed Sex and Gender Information Value Date Recorded Sex Assigned at Not on file Legal Sex Male 11:11 AM PRESS SMITH HELPER Gender Identity Not on file Sexual Orientation [...]
--- OUTSIDE RECORDS SUMMARY | 2025-04-09 16:52 | XMS_ITS | Encounter Summary ---
Author Organization 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
--- OUTSIDE RECORDS SUMMARY | 2025-04-09 16:52 | XMS_ITS | Encounter Summary ---
Author Organization [facility] Address [address] [place] [address] Care Team Providers Care Lean Process Deployment Consultant Name Role Phone Omar Odonnell MD Primary Care Provider [phone] Encounter Details Date Type Department Care Team (Late st Contact Info) Description 03/10/2004 Emergency [facility] Nic Brown [place] [address] Er, Authorized P NO ADDRESS ON FILE SPRAIN OF ANKLE NOS (Primary Dx) Social History Tobacco Use Types Packs/Day Years Used Date Smoking Tobacco: Never Assessed Sex and Gender Information Value Date Recorded Sex Assigned at Not on file Legal Sex Male 4:54 AM HUMAN SERVICES CARE SPECIALIST Gender Identity Not on file Sexual Orientation Not on file documented as of this encounter Plan of Treatment Not on file documented as of this encounter Visit Diagnoses Diagnosis Sprain of ankle, unspecified site- Primary documented in this encounter Care Teams Lean Process Deployment Consultant Relationship Specialty Start Date End Date Omar Odonnell MD PCP - General Family Practice 06/03/16 documented as of this encounter
--- OUTSIDE RECORDS SUMMARY | 2025-04-09 16:52 | XMS_ITS | Clinical Summary ---
Author Organization [facility] Address [address] [facility] [place] [address] Care Team Providers Care Clinical Instructor Name Role Phone Fredy Neff MD Primary Care Provider + [phone] Source Comments [facility],non-owned Affiliates and Associated Physician Practices is amultiple site organization consisting of ambulatory clinics and hospital sitesin [place], [place], [place] and [place]. This disclosure is being madepursuant to the Care Everywhere program and may not contain all information available regarding this patient. Last updated 18.[facility] Allergies Active Allergy Reactions Criticality Noted Date Comments Ibuprofen Anaphylaxis High 06/03/2016 Medications * This document contains information received from the source organization and may not represent a complete record from that organization. * Be aware that medications may not be up to date on this document. Alwaysverify current medications with the patient. 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 Not on fi le Not on file Last Filed Vital Signs Vital Sign Reading Time Taken Comments Blood Pressure 124/81 01/20/2025 10:59 AM CDT Pulse 70 01/20/2025 10:59 AM CDT Temperature 35.9 C (96.7 F) 08/28/2023 10:05 AM DIRECTOR STRATEGIC ACCOUNT MANAGEMENT Respiratory Rate - - Oxygen Saturation 99% 08/28/2023 10:05 AM DIRECTOR STRATEGIC ACCOUNT MANAGEMENT Inhaled Oxygen Concentration - - Weight 149.2 kg (329 lb) 01/20/2025 10:59 AM CDT Height 181.6 cm (5' 11.5) 01/20/2025 10:59 AM C DT Body Mass Index 45.25 01/20/2025 10:59 AM CDT Plan of Treatment Upcoming Encounters Date Type Department Care Team (Late st Contact Info) Description 01/19/2026 9:40 AM CDT Office Visit [facility] - [facility] Services [address] [place] [address] Genie Scott APNP-REFUSE DRIVER [address] [place] [address] Health Maintenance Due Date Last [...] this topic Insurance AETNA AETNA Care Teams Clinical Instructor Relationship Specialty Start Date End Date Fredy Neff MD [address] [place] [address] [address] [place] [address] PCP - General 11/20/21
--- OUTSIDE RECORDS SUMMARY | 2025-04-09 16:52 | XMS_ITS | Clinical Summary ---
Author Organization Omar Doherty [facility] Address [address] [place] [address] Phone Care Team Providers Care Application Coordinator Name Role Phone Omar Odonnell MD Primary Care Provider [phone] Allergies Active Allergy Reactions Criticality Noted Date [...] on file Legal Sex Male 4:54 AM INSPECTOR PRINTED CIRCUIT BOARDS Gender Identity Not on file Sexual Orientation [...] 03/25 INFLUENZA VACCINE (#1) 2025 Care Teams Application Coordinator Relationship Specialty Start Date End Date Omar Odonnell MD PCP - General Family Practice 06/03/16
--- OUTSIDE RECORDS SUMMARY | 2025-04-09 16:52 | XMS_ITS | Clinical Summary ---
Author Organization [facility] Address [address] [place] [address] Care Team Providers Care Tire Building Supervisor Name Role Phone Fredy Neff MD [...] to discuss mental health with PCP or canal equipment maintenance supervisor - referral to [facility] MANAGING MANAGER - follow up with Neurology - continue medications and pacing - follow up with COVID clinic at [facility] Obstructive sleep apnea syndrome 10/11/2017 Hypertension 10/11/2017 [...] on file Legal Sex Male 8:25 PM FRANCHISE SALES MANAGER Gender Identity Not on file Sexual Orientation Not on file Obstetrics History Last Filed Vital Signs Vital Sign Reading Time Taken Comments Blood Pressure 107/71 09/05/2022 10:26 AM FRANCHISE SALES MANAGER neck 16 waist 52 Pulse 71 09/05/2022 10:26 AM FRANCHISE SALES MANAGER Temperature 36.8 C (98.2 F) 07/07/2022 8:57 AM FRANCHISE SALES MANAGER Respiratory Rate - - Oxygen Saturation 97% 04/07/2022 3:2 8 PM CDT Inhaled Oxygen Concentration - - Weight 140.6 kg (310 lb) 10/03/2022 9:5 5 AM FRANCHISE SALES MANAGER Height 180.3 cm (5' 10.98) 09/05/2022 10:26 AM FRANCHISE SALES MANAGER Body Mass Index 43.26 09/05/2022 10:26 AM FRANCHISE SALES MANAGER Plan of Treatment Health Maintenance Due Date [...] patient's age to complete this topic Insurance [facility] Care Teams Tire Building Supervisor Relationship Specialty Start Date End Date Fredy Neff MD [address] [facility] [place] [address] PCP - General Emergency Medicine 05/24/21
--- OUTSIDE RECORDS SUMMARY | 2025-04-09 16:52 | XMS_ITS | Continuity of Care Document ---
Author Organization [facility] Address [address] [place] [address] Phone Care Team Providers Care Hull And Deck Remover Name Role Phone Yesi SMITHRustyi Unavailable Unavailable [...] Diagnoses Date Provider Providers Copied on Encounter [facility], [address] [place] [address], [id number], tel:[phone] [place] No Information [address]. [address] [facility], [facility] [address], [place], [facility], [place]. tel: [phone] [address], [id number], tel:[phone] [place] No Information 0 [address]. [address] [facility], [facility] [address], [place], [facility], [place]. tel: [phone] Referring Provider: Selena Villarreal, [address] [place] [address], [address]. tel:[phone] [facility] [place], [address] [facility] [address], [place], [place], [id number], [place] tel:[phone] Ger CervicalgiaCervi jamshid Strain 4 Yesi Amaral. [address] [facility], [address], [place], [address], [place]. [phone] Referring Provider: Selena Villarreal, [address] [place] [address], [place], [address]. tel:[phone] Family History Family Member Type Diagnosis Age At Onset No Information Payers Payer name Insurance type Covered libertarian ID Authorjamaria sirisha(s) [employer] [facility] [employer] [id number] Social History Type Description Quantity Date Captured [...]
--- OUTSIDE RECORDS SUMMARY | 2025-04-09 16:52 | XMS_ITS | Continuity of Care Document ---
Author Organization [facility] Address [address] [facility] [address] [place] [address] Phone Care Team Providers Care Assembly Cleaner Name Role Phone Vance HERRMANN MD, Efraín Unavailable Unavailable Advance Directives Directive Yes / No Effective Date File Name No Information Encounters Encounter Description Practice Location Reason(s) For Visit Diagnoses Date Provider Providers Copied on Encounter [facility], [address], [id number], tel:[phone] [facility] No Information 6 Vance Kenny. [address] [facility], [facility] [address], [place], [place], [id number] , [place]. tel: [phone] Family History Family Member Type Diagnosis Age [...]
--- OUTSIDE RECORDS SUMMARY | 2025-04-09 16:52 | XMS_ITS | Encounter Summary ---
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
--- OUTSIDE RECORDS SUMMARY | 2025-04-09 16:52 | XMS_ITS | Encounter Summary ---
Author Organization [facility] Address [address] [place] [address] Phone Care Team Providers Care Product Design Engineer Name Role Phone Fredy Shah MD Primary Care Provider [phone] Fredy Neff MD Primary Care Provide r [...] on file Legal Sex Male 8:25 PM MANAGER R D Gender Identity Not on file Sexual Orientation [...] on filedocumented in this encounter Care Teams Product Design Engineer Relationship Specialty Start Date End Date Fredy Shah MD PCP - General 09/20/12 05/23/21 Fredy Neff MD [address] [place] [address] PCP - General Emergency Medicine 05/24/21 documented as of this encounter
--- OUTSIDE RECORDS SUMMARY | 2025-04-09 16:52 | XMS_ITS | Encounter Summary ---
Author Organization [facility] Address [address] [place] [address] Phone Care Team Providers Care Tax Collector Name Role Phone Fredy Shah MD Primary Care Provider [phone] Fredy Neff MD Primary Care Provide r [...] on file Legal Sex Male 8:25 PM AMMONIUM NITRATE CRYSTALLIZER Gender Identity Not on file Sexual Orientation [...] on filedocumented in this encounter Care Teams Tax Collector Relationship Specialty Start Date End Date Fredy Shah MD PCP - General 09/20/12 05/23/21 Fredy Neff MD [address] [place] [address] PCP - General Emergency Medicine 05/24/21 documented as of this encounter
[2025-04-09 17:07] LABS: Hematocrit 42.0 % (42.0-52.0); Hemoglobin 14.2 g/dL (14.0-18.0); Immature Granulocyte Percent A 0.2 % (0-0.5); Lymphocytes Absolute Auto 2.31 K/mm3 (0.9-3.2); Mean Corpuscular HGB Conc 33.8 g/dl (32-36); Mean Corpuscular Hemoglobin 29.9 pg (26-34); Mean Corpuscular Volume 88.4 fl (80-100); Nucleated Red Blood Cells Absolute Auto 0.000 K/mm3 (0.0-0.012); Nucleated Red Blood Cells Perc 0.0 % (0.0-0.2); Platelet Count Result 220 k/mm3 (150-375); Red Blood Count 4.75 M/mm3 (4.6-6.20); White Blood Count 5.1 K/mm3 (4.5-10.0)
[2025-04-09 17:10] VITALS: RESP 18; O2SAT 97
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
[2025-04-09 17:26] LABS: INR 1.0; Partial Thromboplastin Time 30.9 Seconds (22.3-36.8); Prothrombin Time 13.6 Seconds (11.1-14.7)
[2025-04-09 17:48] VITALS: PULSE 76; RESP 18; O2SAT 97
[2025-04-09 17:55] LABS: Alanine Aminotransferase 34 U/L (6-50); Albumin Level 4.5 g/dL (3.5-5.1); Alkaline Phosphatase 73 U/L (38-126); Anion Gap 6 mmol/L (4-12); Aspartate Amino Transferase 34 U/L (17-59); Bilirubin,Total 0.6 mg/dL (0.2-1.3); Blood Urea Nitrogen 15 mg/dL (9-20); Calcium 9.0 mg/dL (8.4-10.2); Carbon Dioxide 33 mmol/L (22-30); Chloride 99 mmol/L (98-107); Estimated CRCL calculation 112 ml/min; Estimated Glomerular Filt Rate > 60; Glucose 83 mg/dL (65-110); Lipase 116 U/L (23-300); Potassium 3.3 mmol/L (3.4-5.0); Sodium 138 mmol/L (137-145); Total Protein 8.0 g/dL (6.3-8.2)
[2025-04-09 18:00] VITALS: PULSE 78; RESP 15; O2SAT 100
[2025-04-09 18:01] VITALS: BP 164/105; PULSE 79; RESP 20; O2SAT 100
[2025-04-09 18:06] LABS: Troponin I < 0.012 ng/mL (0.000-0.034)
[2025-04-09 18:54] VITALS: BP 164/99; PULSE 96; RESP 17; O2SAT 97
[2025-04-09] MEDS: HYDROcodone/acetaminophen (*CRX) 5-325 MG TABLET 1 TAB PO (19:02)
== END 2025-04-09 18:50 | disposition home or self-care (01) ==
PROVIDERS: Emergency Provider Emergency Medicine; PCP Emergency Medicine
DX: M25.512 Pain in left shoulder (principal); I10 Essential (primary) hypertension; G47.33 Obstructive sleep apnea (adult) (pediatric); Z99.89 Dependence on other enabling machines and devices; E66.9 Obesity, unspecified; Z68.42 Body mass index [BMI] 45.0-49.9, adult
CPT/HCPCS: 36415; 71045; 73030; 80053; 83690; 84484; 85025; 85610; 85730; 93005; 99284; A9270

== ENCOUNTER 2025-07-27 08:52 | Emergency (ER) | payer OTHER, SELFPAY ==
[2025-07-27 09:01] VITALS: BP 128/75; PULSE 75; RESP 18; TEMP 36.6; O2SAT 100
[2025-07-27] MEDS: TETANUS,DIPHTHERIA,AC PERTUSSIS ADULT (0.5 ML) BOOSTRIX IM (09:37)
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
== END 2025-07-27 09:43 | disposition home or self-care (01) ==
PROVIDERS: PCP Emergency Medicine
DX: S90.851A Superficial foreign body, right foot, initial encounter (principal); I10 Essential (primary) hypertension; W25.XXXA Contact with sharp glass, initial encounter; Z23 Encounter for immunization
CPT/HCPCS: 90471; 90715; 99213; G0463